=== PATIENT | female | born 1995 | race Caucasian/White ===

== ENCOUNTER 2016-07-15 18:19 | Emergency (ER) | payer SELFPAY ==
[~2016-07-15] VITALS: Ht 165.1 cm; Wt 59.0 kg
[~2016-07-15 18:19] MED LIST: LORTA5 PO; ZOFR8TAB PO
[2016-07-15 18:22] VITALS: BP 148/89; PULSE 65; RESP 16; TEMP 98.1; O2SAT 94
--- NOTE | 2016-07-16 10:52 | EKG ---
Date Performed: 07/15/2016 Time Performed: 18:56:06 PTAGE: 21 years EKG: SINUS BRADYCARDIA WITH SINUS ARRHYTHMIA BORDERLINE ECG PREVIOUS TRACING : 03/10/2016 18.16 Compared to prior tracing no significant change DOCTOR: Phong Love Interpretating Date/Time 07/16/2016 10:50:20
== END 2016-07-15 21:03 | disposition left against medical advice (07) ==
LOC: NED 18:19
DX: R11.10 Vomiting, unspecified (principal); R00.1 Bradycardia, unspecified
CPT/HCPCS: 93005; 99281

== ENCOUNTER 2017-07-19 02:39 | Emergency (ER) | payer SELFPAY ==
[2017-07-19 03:03] VITALS: BP 124/81; PULSE 104; RESP 18; TEMP 97.8; O2SAT 98
[2017-07-19] MEDS ORDERED: SODIUM CHLOR 0.9% 1000 ML INJ 1,000 ML IV ONE (03:32)
[2017-07-19] MEDS ORDERED: KETOROLAC TROMETHAMINE 30 MG/ML (IVP) VIAL IV PUSH ONE (03:45)
[2017-07-19 04:09] LABS: AUTOMATED NEUTROPHIL # 4.7 TH/MM3 (1.8-7.7); BASOPHIL % 0.5 % (0.0-2.0); EOSINOPHIL # 0.2 TH/MM3 (0-0.4); HEMATOCRIT 38.8 % (35.0-46.0); HEMOGLOBIN 13.5 GM/DL (11.6-15.3); LYMPH % 27.6 % (9.0-44.0); MEAN CELL VOLUME 92.2 FL (80.0-100.0); MEAN CORPUSCULAR HEMOGLOBIN 32.2 PG (27.0-34.0); MEAN CORPUSCULAR HGB CONC 34.9 % (32.0-36.0); MEAN PLATELET VOLUME 8.8 FL (7.0-11.0); MONOCYTE # 0.3 TH/MM3 (0-0.9); NEUT % 64.9 % (16.0-70.0); PLATELET COUNT 315 TH/MM3 (150-450); RED BLOOD COUNT 4.21 MIL/MM3 (4.00-5.30); RED CELL DISTRIBUTION WIDTH 12.6 % (11.6-17.2); WHITE BLOOD COUNT 7.2 TH/MM3 (4.0-11.0)
[2017-07-19 04:16] LABS: BILIRUBIN, URINE NEG (NEG); BLOOD, URINE TRACE (NEG); GLUCOSE,URINE NEG (NEG); KETONE, URINE NEG (NEG); MUCUS URINE FEW /lpf (OCC); NITRITE,URINE NEG (NEG); PH, URINE 6.5 (5.0-8.5); SQUAMOUS EPITHELIAL CELL URINE 1 /hpf (0-5); URINE COLOR LIGHT-YELLOW (YELLW/STRAW); URINE LEUKOCYTE ESTERASE NEG (NEG)
[2017-07-19 04:30] LABS: BICARBONATE 27.3 MEQ/L (21.0-32.0); CALCIUM 8.8 MG/DL (8.5-10.1); CREATININE 0.37 MG/DL (0.50-1.00)
--- NOTE | 2017-07-19 05:07 | PD ---
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 Patient states she did have an ultrasound. Patient was given prescriptions for cannot afford them. Patient's had no fever or chills. Patient denies heavy bleeding or clot passage. 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 After inserting the tampon she felt discomfort so called the EMS to transport her to the emergency department. Patient's had no purulent vaginal discharge. While en route to the hospitalist requested that EMS remove the tampon they've informed they could not do that so she drank that the tampon on her own and then complained of increasing pelvic pain patient became reportedly hysterical and uncontrollable so she received Ativan 2 mg IM for mild chemical sedation. PFSH Past Medical History Narrative Medical Depression anxiety kidney stones 2 para 1 AB 1 cholecystectomy occasional alcohol use;nursing notes reviewed Depression: Yes Diminished Hearing: No Kidney Stones: Yes ?: Not Past Surgical History Cholecystectomy: Yes Social History Alcohol Use: No Tobacco Use: No Substance Use: Yes (MARIJUANA ) Allergies-Medications (Allergen,Severity, Reaction): Coded Allergies: No Known Allergies (Unverified Allergy, Unknown, 07/19/17) Reported Meds & Prescriptions Reported Meds & Active Scripts Active Zofran Tab (Ondansetron HCl) 8 Mg Tab 8 Mg PO BID [place] 5-325 mg (Hydrocodone-Acetaminophen 5-325 mg) 1 Tab 1-2 Tab PO Q4H PRN Review of Systems Except as stated in HPI: all other systems reviewed are Neg General / Constitutional: No: Fever, Chills HENT: No: Congestion Cardiovascular: No: Chest Pain or Discomfort Respiratory: No: Shortness of Breath Gastrointestinal: No: Nausea, Vomiting, Abdominal Pain Genitourinary: Positive: Pelvic Pain, Vaginal Bleeding, No: Dysuria, Discharge Skin: No Rash Neurologic: No: Weakness Psychiatric: No: Anxiety Hematologic/Lymphatic: No: Lymph Node Enlargement Physical Exam Narrative GENERAL: Well developed well-nourished female in no acute distress no respiratory distress SKIN: Warm and dry. HEAD: Normocephalic. EYES: No scleral icterus. No injection or drainage. NECK: Supple, trachea midline. No JVD or lymphadenopathy. CARDIOVASCULAR: Regular rate and rhythm without murmurs, gallops, or rubs. RESPIRATORY: Breath sounds equal bilaterally. No accessory muscle use. GASTROINTESTINAL: Abdomen soft, non-tender, nondistended. Pelvic exam: External exam no redness induration or lesions no blood; speculum exam scant pink tinged mucus no blood no clots no tissue cervical os is closed; bimanual exam no cervical motion tenderness or adnexal mass or tenderness. MUSCULOSKELETAL: No cyanosis, or edema. BACK: Nontender without obvious deformity. No CVA tenderness. Data Data Last Documented VS Vital Signs Date Time Temp Pulse Resp B/P (MAP) Pulse Ox O2 Delivery O2 Flow Rate FiO2 07/19/17 03:03 97.8 104 18 124/81 (95) 98 Orders Orders Beta Hcg (Quant/Titer) (07/19/17 03:32) Complete Blood Count With Diff (07/19/17 03:32) Basic Metabolic Panel (Bmp) (07/19/17 03:32) Gc And Chlamydia Pcr (07/19/17 03:32) Complete Rh (07/19/17 03:32) Wet Prep Profile (07/19/17 03:32) Urinalysis - C+S If Indicated (07/19/17 03:32) Iv Access Insert/Monitor (07/19/17 03:32) Sodium Chlor 0.9% 1000 Ml Inj (Ns 1000 M (07/19/17 03:32) Ketorolac Inj (Toradol Inj) (07/19/17 03:45) Mandatory Outpatient Referral (07/19/17 05:07) Labs Laboratory Tests Test 07/19/17 03:41 White Blood Count 7.2 TH/MM3 Red Blood Count 4.21 MIL/MM3 Hemoglobin 13.5 GM/DL Hematocrit 38.8 % Mean Corpuscular Volume 92.2 FL Mean Corpuscular Hemoglobin 32.2 PG Mean Corpuscular Hemoglobin Concent 34.9 % Red Cell Distribution Width 12.6 % Platelet Count 315 TH/MM3 Mean Platelet Volume 8.8 FL Neutrophils (%) (Auto) 64.9 % Lymphocytes (%) (Auto) 27.6 % Monocytes (%) (Auto) 4.0 % Eosinophils (%) (Auto) 3.0 % Basophils (%) (Auto) 0.5 % Neutrophils # (Auto) 4.7 TH/MM3 Lymphocytes # (Auto) 2.0 TH/MM3 Monocytes # (Auto) 0.3 TH/MM3 Eosinophils # (Auto) 0.2 TH/MM3 Basophils # (Auto) 0.0 TH/MM3 CBC Comment DIFF FINAL Differential Comment Urine Color LIGHT-YELLOW Urine Turbidity CLEAR Urine pH 6.5 Urine Specific Lynn 1.005 Urine Protein NEG mg/dL Urine Glucose (UA) NEG mg/dL Urine Ketones NEG mg/dL Urine Occult Blood TRACE Urine Nitrite NEG Urine Bilirubin NEG Urine Urobilinogen LESS THAN 2.0 MG/DL Urine Leukocyte Esterase NEG Urine RBC 1 /hpf Urine WBC 1 /hpf Urine Squamous Epithelial Cells 1 /hpf Urine Mucus FEW /lpf Microscopic Urinalysis Comment CULT NOT INDICATED Clue Cells (Wet Prep) NONE SEEN Vaginal Trichomonas (Wet Prep) NONE SEEN Vaginal Yeast (Wet Prep) NONE SEEN Blood Urea Nitrogen 5 MG/DL Creatinine 0.37 MG/DL Random Glucose 105 MG/DL Calcium Level 8.8 MG/DL Sodium Level 146 MEQ/L Potassium Level 3.7 MEQ/L Chloride Level 112 MEQ/L Carbon Dioxide Level 27.3 MEQ/L Anion Gap 7 MEQ/L Estimat Glomerular Filtration Rate 215 ML/MIN Human Chorionic Gonadotropin, Quant 134 MIU/ML Chlamydia trachomatis DNA (PCR) NOT DETECTED Neisseria gonorrhoeae DNA (PCR) NOT DETECTED MDM Medical Decision Making Medical Screen Exam Complete: Yes Emergency Medical Condition: Yes Medical Record Reviewed: Yes Interpretation(s) CBC & BMP Diagram 07/19/17 03:41 Calcium Level 8.8 Vital Signs Date Time Temp Pulse Resp B/P (MAP) Pulse Ox O2 Delivery O2 Flow Rate FiO2 07/19/17 03:03 97.8 104 18 124/81 (95) 98 hc ua: wnl wet prep: negative (O+) Differential Diagnosis Pelvic pain, post spontaneous vaginal bleeding, endometritis, septic , retained products of conception Narrative Course IV access obtained specimens collected and sent for resulting patient administered Zofran and normal saline Patient given one-time dose of Toradol 30 mg IV Pelvic exam shows no cervical motion tenderness no purulent discharge there is scant pink tinged mucus and no blood clots in the cervical os is closed and no evidence of tissue. Medical records requested from hospital to evaluate to see patient actually did have an ultrasound and if there is any concern for retained products. Patient resting comfortably It is 6 AM and patient informed of lab results and given mandatory referral to gynecology as she states she has no primary care provider no calibration engineer no insurance and no money to arrange follow-up. 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 Patient Instructions: General Instructions Med/Other Pt SpecificInfo: Prescription(s) given Scripts Oxycodone-Acetaminophen (Percocet) 5-325 mg Tab 1 TAB PO Q6H Y for PAIN, #4 TAB 0 Refills Prov: Em Caputo MD 07/19/17 Methylergonovine (Methergine) 0.2 Mg Tab 0.2 MG PO QD for Prevents Bleeding for 3 Days, TAB 0 Refills Prov: Em Caputo MD 07/19/17 Naproxen Sodium DS (Anaprox DS) 550 Mg Tab 550 MG PO BID, #15 TAB 0 Refills Prov: Em Caputo MD 07/19/17 Ondansetron Odt (Zofran Odt) 4 Mg Tab 4 MG SL Q6HR Y for Nausea/Vomiting, #10 TAB 0 Refills Prov: Em Caputo MD 07/19/17 Disposition: 01 DISCHARGE HOME Condition: Stable Em Cpauto MD Jul 19, 2017 05:07
[2017-07-19] MEDS ORDERED: SODIUM CHLOR 0.9% 1000 ML INJ 1,000 ML IV SCH (05:09)
[2017-07-19] MEDS ORDERED: DEXT 5%-NACL 0.9% 1000 ML INJ 1,000 ML IV SCH (05:09)
[2017-07-19] MEDS ORDERED: POTASSIUM CHLOR 40 MEQ PREMIX 100 ML IV PRN ×2 (05:15)
[2017-07-19] MEDS ORDERED: INSULIN REGULAR (IV INFUSION) 100 UNITS in SODIUM CHLORIDE 0.9% INJ 99 ML IV PRN (05:15)
[2017-07-19] MEDS ORDERED: SODIUM PHOSPHATE INJ 15 MMOL in SODIUM CHLORIDE 0.9% INJ 100 ML IV PRN (05:15)
[2017-07-19] MEDS ORDERED: POTASSIUM CHLOR 20 MEQ PREMIX 100 ML IV PRN ×6 (05:15)
[2017-07-19] MEDS ORDERED: SODIUM BICARBONATE 8.4% SOLN 50 MEQ/50 ML VIAL IV PUSH PRN ×2 (05:15)
[2017-07-19 06:04] VITALS: BP 110/60; PULSE 97; RESP 16; TEMP 98; O2SAT 98
[2017-07-19] MEDS ORDERED: METH-703 PO (06:04)
[2017-07-19] MEDS ORDERED: NAPR5TAB5 PO (06:04)
[2017-07-19] MEDS ORDERED: ZOFR4TAB3 SL (06:04)
[2017-07-19] MEDS ORDERED: PERC5TAB12 PO (06:04)
[2017-07-19] MEDS ORDERED: ONDANSETRON HCL 4 MG/2 ML VIAL IV PUSH ONE (06:15)
== END 2017-07-19 06:43 | disposition home or self-care (01) ==
LOC: NEPC 02:39
DX: N93.9 Abnormal uterine and vaginal bleeding, unspecified (principal); T19.2XXA Foreign body in vulva and vagina, initial encounter
CPT/HCPCS: 80048; 81001; 84702; 85025; 86901; 87210; 87491; 87591; 96361; 96374; 96375; 99284; J1885; J2405; J7030

== ENCOUNTER 2018-03-03 15:33 | Observation (INO) ==
[2018-03-03] MEDS ORDERED: Famotidine PF Inj 20 MG/2 ML Vial IV.PUSH ONE (16:24)
[2018-03-03] MEDS ORDERED: Sod Chloride 0.9% Inj 1,000 ML IV.SIG ONE (16:24)
--- NOTE | 2018-03-03 16:36 | ED ---
HPI General Chief Complaint: Chest Pain Stated Complaint: Abd/chest pain Time Seen by Provider: 03/03/18 15:49 Source: patient Mode of arrival: ambulatory Limitations: no limitations History of Present Illness HPI narrative: The patient is a 23-year-old female who presents to the emergency department first of sternal burning chest pain that radiates from the neck down to the epigastrium. The patient's pain has been intermittent, worse with eating, and print present for 1 week. The patient was seen at a hospital in [place] where she had an IV placed, was administered IV fluids, was discharged. The patient states she removed in with her mother who lives in the local area 2 days ago. The patient states she does not have insurance and does not have access to care. The patient denies any known history of esophagitis, HIV, GERD, anorexia, or bulimia. The patient states her weight 1 month ago was 137, estimates a 20 pound weight loss over the last month. Patient denies any shortness of breath, the chest pain is substernal, worse with eating. She does have a history of previous cholecystectomy. MD complaint: abdominal pain Pain Consistency: intermittent Location: epigastric Severity: severe Severity scale (1-10): 8 Quality: aching Radiation: chest Relieving factors: nothing Exacerbating factors: eating Associated symptoms: nausea and vomiting Treatments prior to arrival: other Related Data Home Medications Medication Instructions Recorded Confirmed No Known Home Medications 03/03/18 03/03/18 Allergies Allergy/AdvReac Type Severity Reaction Status Date / Time No Known Allergies Allergy Unverified 03/03/18 16:48 Review of Systems ROS: all other systems reviewed are negative [facility] Medical History Medical History Patient denies medical problems (Acute) Surgical History Surgical History History of cholecystectomy (Acute) Social History Social History Substance History: No History of Abuse Smoking Status: Never smoker How Often Do You Have a Drink Containing Alcohol: Never Recent Travel in [facility] [[email or web address] within the Last 8 Weeks: No Recent Out of Country Travel within the Last 8 Weeks: No Immunization History Tetanus Immunization: Unsure Exam Narrative Exam Narrative: GENERAL: Awake, alert, pleasant 23-year-old female appears her stated age and is in no acute respiratory distress. Thin-looking appearance. SKIN: Focused skin assessment warm/dry. HEAD: Atraumatic. Normocephalic. EYES: Pupils equal and round. No scleral icterus. No injection or drainage. ENT: No nasal bleeding or discharge. Mucous membranes pink and moist. No erythema or exudate noted. NECK: Trachea midline. No JVD. CARDIOVASCULAR: Regular, tachycardic with a heart rate of 115. RESPIRATORY: No accessory muscle use. Clear to auscultation. Breath sounds equal bilaterally. GASTROINTESTINAL: Abdomen soft, mild epigastric tenderness. No guarding or rigidity. MUSCULOSKELETAL: No obvious deformities. No clubbing. No cyanosis. No edema. NEUROLOGICAL: Awake and alert. No obvious cranial nerve deficits. Motor grossly within normal limits. Normal speech. PSYCHIATRIC: Appropriate mood and affect; insight and judgment normal. Course Initial Documented Vital Signs Temperature 97.9 F 03/03/18 15:39 Pulse Rate 127 H 03/03/18 15:39 Respiratory Rate 16 03/03/18 15:39 Blood Pressure 121/63 03/03/18 15:39 Pulse Oximetry 97 03/03/18 15:39 Last Documented Vital Signs Temperature 97.9 F 03/03/18 15:39 Pulse Rate 84 03/03/18 18:22 Respiratory Rate 17 03/03/18 18:22 Blood Pressure 120/66 03/03/18 18:22 Pulse Oximetry 99 03/03/18 18:22 Medical Decision Making MDM Narrative Medical decision making narrative: IV was established, labs are drawn and sent, and the patient was placed on cardiac telemetry monitoring and continuous pulse oximetry monitoring. The patient was taken to the scale for an official weight , she states her weight 1 month ago was 137. Patient was administered Pepcid, Zofran, and 1 L of IV fluids. The patient's laboratory evaluation reveals mild hypokalemia 3.1. Patient appears hemoconcentrated with a hemoglobin of 15.7 white count of 12.5. The patient has significant weight loss, 137 pounds 1 month ago down to 113. The patient has pain with swallowing, may have esophagitis versus esophageal motility disorder versus esophageal spasm versus GERD/gastritis. The patient most likely will require endoscopy to evaluate for possibility of esophagitis versus barium swallow. I discussed the patient with the on-call medical service who agrees with 23 hour observation. The patient is comfortable with this plan of care and disposition. Medical Screen Exam Complete: Yes Emergency Medical Condition: Yes Differential Diagnosis Differential Diagnosis: Differential diagnosis includes esophagitis, GERD, achalasia, esophageal motility disorder, pancreatitis, gastritis, peptic ulcer disease, anorexia, bulimia, esophageal spasm. Lab Data Result diagrams: 03/03/18 16:35 03/03/18 16:35 POC Results POC Urine Results Negative Lab Results 03/03/18 03/03/18 03/03/18 Range/Units 16:35 16:35 16:35 WBC 12.5 H (4.0-11.0) th/mm3 RBC 5.24 (4.00-5.30) mil/mm3 Hgb 15.7 H (11.6-15.3) gm/dL Hct 47.3 H (35.0-46.0) % MCV 90.4 (80.0-100.0) fL MCH 30.1 (27.0-34.0) pg MCHC 33.3 (32.0-36.0) % RDW 14.6 (11.6-17.2) % Plt Count 270 (150-450) th/mm3 MPV 9.7 (7.0-11.0) fL Neut % (Auto) 69.0 (16.0-70.0) % Lymph % (Auto) 22.6 (9.0-44.0) % [place] % (Auto) 6.3 (0.0-8.0) % Eos % (Auto) 1.4 (0.0-4.0) % Baso % (Auto) 0.7 (0.0-2.0) % Neut # (Auto) 8.6 H (1.8-7.7) th/mm3 Lymph # (Auto) 2.8 (1.0-4.8) th/mm3 [place] # (Auto) 0.8 (0.0-0.9) th/mm3 Eos # (Auto) 0.2 (0.0-0.4) th/mm3 Baso # (Auto) 0.1 (0.0-0.2) th/mm3 WBC Differential . Differential Comment Auto diff final Sodium 137 (136-145) meq/L Potassium 3.1 L (3.5-5.1) meq/L Chloride 99 (98-107) meq/L Carbon Dioxide 27.5 (21.0-32.0) meq/L Anion Gap 11 (5-15) meq/L BUN 8 (7-18) mg/dL Creatinine 0.64 (0.50-1.00) mg/dL Estimated GFR Greater than 89 (>89) mL/min Random Glucose 85 (74-106) mg/dL Lactic Acid 0.8 (0.4-2.0) mmol/L Calcium 8.6 (8.5-10.1) mg/dL Total Bilirubin 0.8 (0.2-1.0) mg/dL AST 9 L (15-37) U/L ALT 20 (10-53) U/L Alkaline Phosphatase 82 (45-117) U/L Total Protein 7.3 (6.4-8.2) g/dL Albumin 4.1 (3.4-5.0) g/dL Lipase 143 (73-393) U/L Imaging Data Radiologist's impression: Chest X-Ray 03/03/18 16:24 CONCLUSION: No acute intrathoracic disease. ECG Data EKG Prior to Arrival: No Attestation: I personally reviewed and interpreted this ECG as follows: Interpretation: EKG reveals sinus rhythm with sinus arrhythmia. Heart rate in the 80. Discharge Plan Discharge Disposition Patient Disposition: 30 Still Patient Discharge Condition Condition: Stable Discharge Details Diagnosis: Odynophagia, Unintended weight loss Physicians Team ED Provider: Wiley Herbert Primary Care Provider: Primary Care Lakshmi Dinero Attending Provider: Joel Dwyer Discharge Interventions Interventions: Vital Signs Last Done: 03/03/18 18:22 Status ED Status: Admitted Observation Patient
--- NOTE | 2018-03-03 16:50 | XR ---
EXAM DATE: 03/03/2018 4:40 PM EDT AGE/SEX: 23 years / Female INDICATIONS: Chest pain, palpitations, and vomiting. CLINICAL DATA: This is the patient's initial encounter. Patient reports that signs and symptoms have been present for 1 week and indicates a pain score of 4/10. MEDICAL/SURGICAL HISTORY: None. None. COMPARISON: No prior exams available for comparison. FINDINGS: A single AP view of the chest demonstrates the lungs to be symmetrically aerated without evidence of mass, infiltrate or effusion. The cardiomediastinal contours are unremarkable. Osseous structures a re intact. CONCLUSION: No acute intrathoracic disease. Electronically signed by: Leo Hartman MD 03/03/2018 4:49 PM EDT
[2018-03-03 17:01] LABS: Baso # (Auto) 0.1 th/mm3 (0.0-0.2); Baso % (Auto) 0.7 % (0.0-2.0); Eos # (Auto) 0.2 th/mm3 (0.0-0.4); Eos % (Auto) 1.4 % (0.0-4.0); Hematocrit 47.3 % (35.0-46.0); Hemoglobin 15.7 gm/dL (11.6-15.3); Lymph # (Auto) 2.8 th/mm3 (1.0-4.8); Lymph % (Auto) 22.6 % (9.0-44.0); Mean Corpuscular HGB Conc 33.3 % (32.0-36.0); Mean Corpuscular Hemoglobin 30.1 pg (27.0-34.0); Mean Corpuscular Volume 90.4 fL (80.0-100.0); Mean Platelet Volume 9.7 fL (7.0-11.0); Mono # (Auto) 0.8 th/mm3 (0.0-0.9); Mono % (Auto) 6.3 % (0.0-8.0); Neut # (Auto) 8.6 th/mm3 (1.8-7.7); Platelet Count 270 th/mm3 (150-450); Red Blood Count 5.24 mil/mm3 (4.00-5.30); Red Cell Distribution Width 14.6 % (11.6-17.2); White Blood Count 12.5 th/mm3 (4.0-11.0)
[2018-03-03 17:15] LABS: Alanine Aminotransferase 20 U/L (10-53); Albumin 4.1 g/dL (3.4-5.0); Anion Gap 11 meq/L (5-15); Aspartate Aminotransferase 9 U/L (15-37); Blood Urea Nitrogen 8 mg/dL (7-18); Calcium 8.6 mg/dL (8.5-10.1); Carbon Dioxide 27.5 meq/L (21.0-32.0); Chloride 99 meq/L (98-107); Glomerular Filtration Rate Greater Than 89 mL/min (>89); Glucose,Random 85 mg/dL (74-106); Lipase 143 U/L (73-393); Potassium 3.1 meq/L (3.5-5.1); Sodium 137 meq/L (136-145)
[2018-03-03 17:17] LABS: Alkaline Phosphatase 82 U/L (45-117); Total Protein 7.3 g/dL (6.4-8.2)
[2018-03-03] MEDS ORDERED: Ketorolac Inj 30 MG/ML (IVP) Vial IV.PUSH ONE (17:34)
[2018-03-03] MEDS ORDERED: Morphine Sulfate Inj 2 MG/ML Vial IV.PUSH ONE ×2 (17:56→19:35)
[2018-03-03] MEDS ORDERED: Sod Chloride 0.9% Inj 1,000 ML IV.SIG SCH (18:00)
[2018-03-03 18:47] LABS: Bacteria,Urine Occasional /hpf; Bilirubin,Urine Negative (Negative); Color,Urine Amber (Yellw/Straw); Glucose,Urine (UA) Negative (Negative); Hyaline Casts,Urine 4 /lpf (0-3); Leukocyte Esterase,Urine Negative (Negative); Mucus,Urine Many /lpf (Occasional); Nitrite,Urine Negative (Negative); Specific Gravity,Urine 1.019 (1.002-1.035); Squamous Epithelial Cell,Urine 29 /hpf (0-5)
[2018-03-03 18:48] LABS: Clarity,Urine Hazy (Clear)
[2018-03-03] MEDS ORDERED: Bisacodyl 10 MG Supp RECTAL PRN (20:09)
[2018-03-03] MEDS: Sod Chloride 0.9% Inj 1,000 ML IV.CONT SCH (21:30)
[2018-03-03] MEDS: Potassium Chlor 20 mEq Premix 20 MEQ/100 ML PIGGYBACK IV.SIG SCH (21:30)
[2018-03-03] MEDS ORDERED: Acetaminophen 325 MG Tablet PO PRN (22:00)
[2018-03-03] MEDS ORDERED: Naloxone Inj 0.4 MG/ML Vial IV.PUSH PRN (22:00)
[2018-03-03 22:51] LABS: Amphetamine Screen,Urine Neg (Neg); Barbiturate Screen,Urine Neg (Neg); Cannabinoid Screen,Urine Pos (Neg); Cocaine Screen,Urine Neg (Neg)
[2018-03-03 22:52] LABS: Opiate Screen,Urine Pos (Neg)
--- NOTE | 2018-03-03 23:51 | P.HPIM ---
History of Present Illness Primary Care Physician: No Primary Care Physician History of Present Illness: 23-year-old female history of cholecystectomy due to cholelithiasis and pericholecystic fluid in 2016 who presents with intermittent nonradiating, burning epigastric pain, nausea with nonbloody vomiting over the past week. She reports a 27 pound weight loss. Patient reports smoking marijuana, says she quit 2 days ago however. Review of Systems All other systems reviewed negative except as stated in HPI [facility] - History History Provided By: Patient - Medical History Medical History: Medical History (Last Reviewed 03/03/18 @ 22:49 by Miladis Lam RN) Miscarriage - Surgical History Surgical History: Surgical History (Last Reviewed 03/03/18 @ 22:49 by Miladis Lam RN) History of cholecystectomy - Family History Family History: Family History (Last Updated 03/03/18 @ 23:47 by Jhonny Yun MD) Father Diabetes Father Liver disease Mother Hypertension - Tobacco History Second Hand Smoke Exposure: No Smoking Status: Never smoker - Alcohol History How Often Do You Have a Drink Containing Alcohol: Never - Substance Use History Substance History: No History of Abuse - Travel History Recent Travel in the [place] Within the Last 8 Weeks: No Recent Travel Out of the Country Within the Last 8 Weeks: No - Immunization History Tetanus Immunization: Unsure Medications and Allergies Active Medications: Active Medications Acetaminophen (Tylenol) 650 mg PO Q6HR PRN PRN Reason: PAIN SCALE 1 TO 2 Al Hydroxide/Mg Hydroxide (Milk Of Magnesia Liq) 30 ml PO Q12H PRN PRN Reason: Mild Constipation Bisacodyl (Dulcolax Supp) 10 mg RECTAL DAILY PRN PRN Reason: SEVERE CONSITIPATION Sodium Chloride (Ns Inj) 1,000 mls @ 0 mls/hr IV.SIG BOLUS ASHER Potassium Chloride (Kcl 20 Meq Premix Inj) 20 meq in 100 mls @ 50 mls/hr IV.SIG Q2H ASHER Stop: 03/04/18 00:59 Last Admin: 03/03/18 21:30 Dose: 50 mls/hr Sodium Chloride (Ns Inj) 1,000 mls @ 100 mls/hr IV.CONT .Q10H ASHER Last Admin: 03/03/18 21:30 Dose: 100 mls/hr Lactulose (Lactulose Liq) 30 ml PO DAILY PRN PRN Reason: SEVERE CONSITIPATION Naloxone HCl (Narcan Inj) 0.4 mg IV.PUSH UNSCH PRN PRN Reason: SEE LABEL COMMENTS Sennosides (Senokot) 17.2 mg PO Q12H PRN PRN Reason: Moderate Constipation Sodium Chloride (Ns Flush) 2 ml IV.FLUSH PRN PRN PRN Reason: FLUSH AFTER USING IV ACCESS Last Admin: 03/03/18 16:54 Dose: 2 ml Tramadol HCl (Ultram) 50 mg PO Q4H PRN PRN Reason: PAIN SCALE 3 TO 5 Tramadol HCl (Ultram) 100 mg PO Q4H PRN PRN Reason: PAIN SCALE 6 TO 10 Last Admin: 03/03/18 22:28 Dose: 100 mg Allergies Allergy/AdvReac Type Severity Reaction Status Date / Time No Known Allergies Allergy Unverified 03/03/18 16:48 Home Medications Medication Instructions Recorded Confirmed Type No Known Home Medications 03/03/18 03/03/18 History Exam Vital signs: Vital Signs 03/03/18 15:39 03/03/18 15:48 03/03/18 18:22 Temperature 97.9 F Pulse Rate 127 H 104 H 84 Respiratory Rate 16 18 17 Blood Pressure 121/63 126/67 120/66 Pulse Oximetry 97 96 99 03/03/18 21:22 Temperature 98.6 F Pulse Rate 67 Respiratory Rate 16 Blood Pressure 100/55 L Pulse Oximetry 97 Intake & Output 03/03/18 03/03/18 03/04/18 06:59 18:59 06:59 Intake Total 1000 / 1000 Balance 1000 / 1000 Weight 51.6 kg Intake: IV 1000 / 1000 NS Inj 1,000 ML @ Wide Open IV. 1000 / 1000 SIG BOLUS ONE Rx#:[id number] Other: Date of Last Bowel Movement 03/02/18 Narrative: GENERAL: Patient sitting up in bed. Appears comfortable. Alert and oriented 4. Patient examined with nurse present. SKIN: Warm and dry. HEAD: Atraumatic. Normocephalic. EYES: Pupils equal and round. No scleral icterus. No injection or drainage. ENT: No nasal bleeding or discharge. Mucous membranes pink and moist. NECK: Trachea midline. No JVD. CARDIOVASCULAR: Regular rate and rhythm. RESPIRATORY: No accessory muscle use. Clear to auscultation. Breath sounds equal bilaterally. GASTROINTESTINAL: Abdomen soft, non-tender, nondistended. Hepatic and splenic margins not palpable. Positive bowel sounds. MUSCULOSKELETAL: Extremities without clubbing, cyanosis, or edema. No obvious deformities. NEUROLOGICAL: Awake and alert. No obvious cranial nerve deficits. Motor grossly within normal limits. Five out of 5 muscle strength in the arms and legs. Normal speech. PSYCHIATRIC: Appropriate mood and affect; insight and judgment normal. Results - Labs CBC & Chem 7: 03/03/18 16:35 03/03/18 16:35 Labs: Short CBC 03/03/18 Range/Units 16:35 WBC 12.5 H (4.0-11.0) th/mm3 Hgb 15.7 H (11.6-15.3) gm/dL Hct 47.3 H (35.0-46.0) % Plt Count 270 (150-450) th/mm3 BMP 03/03/18 16:35 Sodium 137 Potassium 3.1 L Chloride 99 Carbon Dioxide 27.5 BUN 8 Creatinine 0.64 Calcium 8.6 Liver Function 03/03/18 Range/Units 16:35 Total Bilirubin 0.8 (0.2-1.0) mg/dL AST 9 L (15-37) U/L ALT 20 (10-53) U/L Alkaline Phosphatase 82 (45-117) U/L Albumin 4.1 (3.4-5.0) g/dL Urine 03/03/18 Range/Units 18:21 Urine Color Renetta (Yellw/Straw) Urine Clarity Hazy H (Clear) Urine pH 6.0 (5.0-8.5) Ur Specific [place] 1.019 (1.002-1.035) Urine Protein 30 H (Neg-Trace) mg/dL Urine Glucose (UA) Negative (Negative) mg/dL - Imaging Impressions Chest X-Ray 03/03/18 16:24 CONCLUSION: No acute intrathoracic disease. Caprini VTE Risk Assessment Caprini VTE Risk Assessment: No/Low Risk (score <= 1) Caprini Risk Assessment Model: Point Value = 1 Point Value = 2 Point Value = 3 Point Value = 5 Age 41-60 Minor surgery BMI > 25 kg/m2 Swollen legs Varicose veins or History of unexplained or recurrent spontaneous Oral contraceptives or hormone replacement Sepsis (< 1 month) Serious lung disease, including pneumonia (< 1 month) Abnormal pulmonary function Acute myocardial infarction Congestive heart failure (< 1 month) History of inflammatory bowel disease Medical patient at bed rest Age 61-74 Arthroscopic surgery Major open surgery (> 45 min) Laparoscopic surgery (> 45 min) Malignancy Confined to bed (> 72 hours) Immobilizing plaster cast Central venous access Age >= 75 History of VTE Family history of VTE Factor V Leiden Prothrombin [id number] Lupus anticoagulant Anticardiolipin antibodies Elevated serum homocysteine Heparin-induced thrombocytopenia Other congenital or acquired thrombophilia Stroke (< 1 month) Elective arthroplasty Hip, pelvis, or leg fracture Acute spinal cord injury (< 1 month) Prophylaxis Regimen: Total Risk Factor Score Risk Level Prophylaxis Regimen 0-1 Low Early ambulation 2 Moderate Order ONE of the following: *Sequential Compression Device (SCD) *Heparin 5000 units SQ BID 3-4 Higher Order ONE of the following medications: *Heparin 5000 units SQ TID *Enoxaparin/Lovenox 40 mg SQ daily (WT < 150 kg, CrCl > 30 mL/min) *Enoxaparin/Lovenox 30 mg SQ daily (WT < 150 kg, CrCl > 10-29 mL/min) *Enoxaparin/Lovenox 30 mg SQ BID (WT < 150 kg, CrCl > 30 mL/min) AND/OR *Sequential Compression Device (SCD) 5 or more Highest Order ONE of the following medications: *Heparin 5000 units SQ TID (Preferred with Epidurals) *Enoxaparin/Lovenox 40 mg SQ daily (WT < 150 kg, CrCl > 30 mL/min) *Enoxaparin/Lovenox 30 mg SQ daily (WT < 150 kg, CrCl > 10-29 mL/min) *Enoxaparin/Lovenox 30 mg SQ BID (WT < 150 kg, CrCl > 30 mL/min) AND *Sequential Compression Device (SCD) Assessment and Plan - Plan //Epigastric pain //Nausea and vomiting -Chest x-ray unremarkable. -LFTs unremarkable. Improved nausea with antiemetics Continue antiemetics. -Possibility of marijuana hyperemesis syndrome, however patient does not believe this is a case. N.p.o. Consult gastroenterology. //Mild leukocytosis. Leukocytes 12.6 likely secondary to nausea vomiting. No signs of infection. Continue to monitor //Hypokalemia. Likely secondary nausea vomiting. Replace and monitor. Discussed Condition With: Patient, nurse, Dr. Dwyer H&P: Quality - VTE Deep Vein Thrombosis/Pulmonary Embolism Present on Admission: No
[2018-03-04] MEDS: Potassium Chlor 20 mEq Premix 20 MEQ/100 ML PIGGYBACK IV.SIG SCH (00:27)
[2018-03-04] MEDS: Melatonin 5 MG Tablet PO PRN ×2 (01:14→21:02)
[2018-03-04] MEDS: Pantoprazole Inj 40 MG Vial IV.PUSH SCH ×3 (01:53→20:33)
[2018-03-04] MEDS: Sod Chloride 0.9% Inj 1,000 ML IV.CONT SCH ×3 (06:36→20:47)
[2018-03-04 07:15] LABS: Baso # (Auto) 0.1 th/mm3 (0.0-0.2); Baso % (Auto) 0.9 % (0.0-2.0); Eos # (Auto) 0.3 th/mm3 (0.0-0.4); Eos % (Auto) 2.8 % (0.0-4.0); Hematocrit 39.2 % (35.0-46.0); Hemoglobin 13.1 gm/dL (11.6-15.3); Lymph # (Auto) 3.5 th/mm3 (1.0-4.8); Lymph % (Auto) 37.8 % (9.0-44.0); Mean Corpuscular HGB Conc 33.4 % (32.0-36.0); Mean Corpuscular Hemoglobin 30.6 pg (27.0-34.0); Mean Corpuscular Volume 91.5 fL (80.0-100.0); Mean Platelet Volume 9.1 fL (7.0-11.0); Mono # (Auto) 0.6 th/mm3 (0.0-0.9); Neut # (Auto) 4.9 th/mm3 (1.8-7.7); Neut % (Auto) 52.5 % (16.0-70.0); Platelet Count 186 th/mm3 (150-450); Red Blood Count 4.28 mil/mm3 (4.00-5.30); Red Cell Distribution Width 14.2 % (11.6-17.2); White Blood Count 9.4 th/mm3 (4.0-11.0)
[2018-03-04 08:15] LABS: Alanine Aminotransferase 16 U/L (10-53); Albumin 3.2 g/dL (3.4-5.0); Alkaline Phosphatase 61 U/L (45-117); Anion Gap 9 meq/L (5-15); Aspartate Aminotransferase 7 U/L (15-37); Blood Urea Nitrogen 8 mg/dL (7-18); Calcium 7.9 mg/dL (8.5-10.1); Carbon Dioxide 27.5 meq/L (21.0-32.0); Chloride 107 meq/L (98-107); Glomerular Filtration Rate Greater Than 89 mL/min (>89); Glucose,Random 68 mg/dL (74-106); Potassium 3.2 meq/L (3.5-5.1); Sodium 143 meq/L (136-145); Total Protein 5.6 g/dL (6.4-8.2)
--- NOTE | 2018-03-04 09:05 | P.CONGI ---
History of Present Illness Consult date: 03/04/18 Consult reason: Epigastric pain Chief complaint: odynophagia, possible esophagitis,significant History of Present Illness: This is a 23 yo F with PMH significant for cholecystectomy who presented to the ER yesterday with complaints of abdominal pain, nausea, vomiting, and weight loss. Pt reports symptoms began 8 days ago, complaining of generalized abdominal pain that is worse in her epigastric area, constant, described as dull and aching, burning sensation when she eats. Also complaining of nausea with emesis, multiple episodes, denies hematemesis, has noticed some black chunks. Denies dysphagia, reports some odynophagia from vomiting. Pt also reports a 27 pound weight loss over the past 8 days, has not been able to keep anything down. Has not had a BM in a few days because she has not been eating. Subjective fevers, but has not checked her temperature. Denies previous GI history. Has never had EGD or colonoscopy. Reports social ETOH use, thinks last drink was about a month ago. Denies frequent NSAID use, did have some Ibuprofen yesterday. Also admits to marijuana use, last use was 2 days ago. Pt has been trying Melatonin, Nyquil, and Benadryl for symptoms to help her sleep. <eJs Toussaint - Last Filed: 03/04/18 08:52> Review of Systems Constitutional: Reports chills, Reports fatigue, Reports fever(s), Reports weight loss Gastrointestinal: Reports abdominal pain, Reports nausea, Reports vomiting, Denies change in bowel habits Comments: Denies dysphagia, reports odynophagia <Jes Toussaint - Last Filed: 03/04/18 08:52> [facility] - History History Provided By: Patient - Medical History Medical History: Medical History (Last Reviewed 03/03/18 @ 22:49 by Miladis Lam RN) Miscarriage - Surgical History Surgical History: Surgical History (Last Reviewed 03/03/18 @ 22:49 by Miladis aLm RN) History of cholecystectomy - Family History Family History: Family History (Last Updated 03/03/18 @ 23:47 by Jhonny Yun MD) Father Diabetes Father Liver disease Mother Hypertension - Tobacco History Second Hand Smoke Exposure: No Smoking Status: Never smoker - Alcohol History How Often Do You Have a Drink Containing Alcohol: Never - Substance Use History Substance History: No History of Abuse - Travel History Recent Travel in the [place] Within the Last 8 Weeks: No Recent Travel Out of the Country Within the Last 8 Weeks: No - Immunization History Tetanus Immunization: Unsure <Jes Toussaint - Last Filed: 03/04/18 08:52> - Medical History Medical History: Medical History (Last Reviewed 03/03/18 @ 22:49 by Miladis Lam, RN) Miscarriage - Surgical History Surgical History: Surgical History (Last Reviewed 03/03/18 @ 22:49 by Miladis Lam RN) History of cholecystectomy - Family History Family History: Family History (Last Updated 03/03/18 @ 23:47 by Jhonny Yun MD) Father Diabetes Father Liver disease Mother Hypertension <Renuka Charles - Last Filed: 03/04/18 15:29> Medications and Allergies Active Medications: Active Medications Acetaminophen (Tylenol) 650 mg PO Q6HR PRN PRN Reason: PAIN SCALE 1 TO 2 Al Hydroxide/Mg Hydroxide (Milk Of Magnesia Liq) 30 ml PO Q12H PRN PRN Reason: Mild Constipation Bisacodyl (Dulcolax Supp) 10 mg RECTAL DAILY PRN PRN Reason: SEVERE CONSITIPATION Sodium Chloride (Ns Inj) 1,000 mls @ 0 mls/hr IV.SIG BOLUS ASHER Sodium Chloride (Ns Inj) 1,000 mls @ 100 mls/hr IV.CONT .Q10H ASHER Last Admin: 03/04/18 06:36 Dose: 100 mls/hr Lactulose (Lactulose Liq) 30 ml PO DAILY PRN PRN Reason: SEVERE CONSITIPATION Melatonin (Melatonin) 5 mg PO HS PRN PRN Reason: INSOMNIA Last Admin: 03/04/18 01:14 Dose: 5 mg Naloxone HCl (Narcan Inj) 0.4 mg IV.PUSH UNSCH PRN PRN Reason: SEE LABEL COMMENTS Pantoprazole Sodium (Protonix Inj) 40 mg IV.PUSH Q12HR ASHER Last Admin: 03/04/18 01:53 Dose: 40 mg Sennosides (Senokot) 17.2 mg PO Q12H PRN PRN Reason: Moderate Constipation Sodium Chloride (Ns Flush) 2 ml IV.FLUSH PRN PRN PRN Reason: FLUSH AFTER USING IV ACCESS Last Admin: 03/03/18 16:54 Dose: 2 ml Tramadol HCl (Ultram) 50 mg PO Q4H PRN PRN Reason: PAIN SCALE 3 TO 5 Tramadol HCl (Ultram) 100 mg PO Q4H PRN PRN Reason: PAIN SCALE 6 TO 10 Last Admin: 03/03/18 22:28 Dose: 100 mg <Jes Toussaint - Last Filed: 03/04/18 08:52> Active Medications: Active Medications Acetaminophen (Tylenol) 650 mg PO Q6HR PRN PRN Reason: PAIN SCALE 1 TO 2 Al Hydroxide/Mg Hydroxide (Milk Of Magnesia Liq) 30 ml PO Q12H PRN PRN Reason: Mild Constipation Bisacodyl (Dulcolax Supp) 10 mg RECTAL DAILY PRN PRN Reason: SEVERE CONSITIPATION Chlorhexidine Gluconate (Chlorhexidine 2% Cloth) 3 pack [employer]ICAL [employer]GER [facility] Stop: 03/07/18 11:26 Sodium Chloride (Ns Inj) 1,000 mls @ 0 mls/hr IV.SIG BOLUS [facility] Sodium Chloride (Ns Inj) 1,000 mls @ 100 mls/hr IV.CONT .Q10H [facility] Last Admin: 03/04/18 06:36 Dose: 100 mls/hr Lactated Ringer's (Lr 1000 Ml Inj) 1,000 mls @ 30 mls/hr IV.SIG .Q24H [facility] Stop: 03/05/18 11:29 Last Admin: 03/04/18 10:20 Dose: 30 mls/hr Sodium Chloride (Ns Inj) 500 mls @ 30 mls/hr IV.SIG .Q10H [facility] Lactulose (Lactulose Liq) 30 ml PO DAILY PRN PRN Reason: SEVERE CONSITIPATION Melatonin (Melatonin) 5 mg PO HS PRN PRN Reason: INSOMNIA Last Admin: 03/04/18 01:14 Dose: 5 mg Metoprolol Tartrate (Lopressor) 25 mg PO [employer]OLOGICAL MANAGER [facility] Stop: 03/07/18 11:26 Naloxone HCl (Narcan Inj) 0.4 mg IV.PUSH UNSCH PRN PRN Reason: SEE LABEL COMMENTS Pantoprazole Sodium (Protonix Inj) 40 mg IV.PUSH Q12HR [facility] Last Admin: 03/04/18 11:47 Dose: Not Given Sennosides (Senokot) 17.2 mg PO Q12H PRN PRN Reason: Moderate Constipation Sodium Chloride (Ns Flush) 2 ml IV.FLUSH PRN PRN PRN Reason: FLUSH AFTER USING IV ACCESS Last Admin: 03/04/18 10:58 Dose: 2 ml Tramadol HCl (Ultram) 50 mg PO Q4H PRN PRN Reason: PAIN SCALE 3 TO 5 Tramadol HCl (Ultram) 100 mg PO Q4H PRN PRN Reason: PAIN SCALE 6 TO 10 Last Admin: 03/04/18 14:37 Dose: 100 mg <Renuka Charles - Last Filed: 03/04/18 15:29> Allergies Allergy/AdvReac Type Severity Reaction Status Date / Time No Known Allergies Allergy Unverified 03/03/18 16:48 Home Medications Medication Instructions Recorded Confirmed Type No Known Home Medications 03/03/18 03/03/18 History Exam Vital signs: Vital Signs 03/03/18 15:39 03/03/18 15:48 03/03/18 18:22 Temperature 97.9 F Pulse Rate 127 H 104 H 84 Respiratory Rate 16 18 17 Blood Pressure 121/63 126/67 120/66 Pulse Oximetry 97 96 99 03/03/18 21:22 03/03/18 23:47 03/04/18 00:26 Temperature 98.6 F 97.7 F Pulse Rate 67 67 Respiratory Rate 16 16 18 Blood Pressure 100/55 L 96/53 L Pulse Oximetry 97 100 03/04/18 03:12 03/04/18 08:00 Temperature 97.7 F 97.4 F L Pulse Rate 61 55 L Respiratory Rate 16 20 Blood Pressure 94/41 L 103/45 L Pulse Oximetry 99 99 Intake & Output 03/03/18 03/04/18 03/04/18 18:59 06:59 18:59 Intake Total 2099 Balance 2099 Weight 51.6 kg Intake: IV 2099 NS Inj 1,000 ML @ 100 mls/hr IV 900 / 900 .CONT .Q10H ASHER Rx#:[id number] KCl 20 mEq Premix Inj 20 meq In 200 / 200 100 ml @ 50 mls/hr IV.SIG Q2H ASHER Rx#:[id number] NS Inj 1,000 ML @ Wide Open IV. 1000 / 1000 SIG BOLUS ONE Rx#:[id number] Other: # Voids 4 Date of Last Bowel Movement 03/02/18 - Constitutional no acute distress - Routine HEENT Exam Head: Present: normocephalic, atraumatic - Routine Respiratory Exam Absent: accessory muscle use - Routine Cardiovascular Exam Present: RRR - Routine Abdominal Exam Present: soft, normoactive bowel sounds, tenderness. Absent: distended - Routine Skin Exam Present: dry, warm - Routine Neurological Exam Present: alert, oriented X3 <Jes Toussaint - Last Filed: 03/04/18 08:52> Vital signs: Vital Signs 03/03/18 15:39 03/03/18 15:48 03/03/18 18:22 Temperature 97.9 F Pulse Rate 127 H 104 H 84 Respiratory Rate 16 18 17 Blood Pressure 121/63 126/67 120/66 Pulse Oximetry 97 96 99 03/03/18 21:22 03/03/18 23:47 03/04/18 00:26 Temperature 98.6 F 97.7 F Pulse Rate 67 67 Respiratory Rate 16 16 18 Blood Pressure 100/55 L 96/53 L Pulse Oximetry 97 100 03/04/18 03:12 03/04/18 08:00 03/04/18 12:55 Temperature 97.7 F 97.4 F L 97.6 F Pulse Rate 61 55 L 92 H Respiratory Rate 16 20 16 Blood Pressure 94/41 L 103/45 L 115/59 L Pulse Oximetry 99 99 100 03/04/18 14:59 Temperature Pulse Rate 56 L Respiratory Rate 20 Blood Pressure 109/67 Pulse Oximetry 100 Intake & Output 03/03/18 03/04/18 03/04/18 18:59 06:59 18:59 Intake Total 2099 Balance 2099 Weight 51.6 kg Intake: IV 2099 NS Inj 1,000 ML @ 100 mls/hr IV 900 / 900 .CONT .Q10H ASHER Rx#:[id number] KCl 20 mEq Premix Inj 20 meq In 200 / 200 100 ml @ 50 mls/hr IV.SIG Q2H ASHER Rx#:[id number] NS Inj 1,000 ML @ Wide Open IV. 1000 / 1000 SIG BOLUS ONE Rx#:[id number] Other: # Voids 4 Date of Last Bowel Movement 03/02/18 <Renuka Charles - Last Filed: 03/04/18 15:29> Results - Labs CBC & Chem 7: 03/04/18 06:33 03/04/18 06:33 Labs: Laboratory Results - last 24 hr 03/03/18 03/03/18 03/03/18 16:35 16:35 16:35 WBC 12.5 H RBC 5.24 Hgb 15.7 H Hct 47.3 H MCV 90.4 MCH 30.1 MCHC 33.3 RDW 14.6 Plt Count 270 MPV 9.7 Neut % (Auto) 69.0 Lymph % (Auto) 22.6 [place] % (Auto) 6.3 Eos % (Auto) 1.4 Baso % (Auto) 0.7 Neut # (Auto) 8.6 H Lymph # (Auto) 2.8 [place] # (Auto) 0.8 Eos # (Auto) 0.2 Baso # (Auto) 0.1 WBC Differential . Differential Comment Auto diff final Sodium 137 Potassium 3.1 L Chloride 99 Carbon Dioxide 27.5 Anion Gap 11 BUN 8 Creatinine 0.64 Estimated GFR Greater than 89 Random Glucose 85 Lactic Acid 0.8 Calcium 8.6 Magnesium Total Bilirubin 0.8 AST 9 L ALT 20 Alkaline Phosphatase 82 Total Protein 7.3 Albumin 4.1 Lipase 143 Urine Color Urine Clarity Urine pH Ur Specific [place] Urine Protein Urine Glucose (UA) Urine Ketones Urine Occult Blood Urine Nitrate Urine Bilirubin Urine Urobilinogen Ur Leukocyte Esterase Urine RBC Urine WBC Ur Squamous Epith Cells Urine Bacteria Hyaline Casts Urine Mucus Micro UA Comment Ur Microscopic Review Urine Culture Comments Urine Opiates Screen Ur Barbiturates Screen Ur Amphetamines Screen U Benzodiazepines Scrn Urine Cocaine Screen U Cannabinoids Screen 03/03/18 03/03/18 03/04/18 18:21 22:00 06:33 WBC 9.4 RBC 4.28 Hgb 13.1 D Hct 39.2 MCV 91.5 MCH 30.6 MCHC 33.4 RDW 14.2 Plt Count 186 D MPV 9.1 Neut % (Auto) 52.5 Lymph % (Auto) 37.8 [place] % (Auto) 6.0 Eos % (Auto) 2.8 Baso % (Auto) 0.9 Neut # (Auto) 4.9 Lymph # (Auto) 3.5 [place] # (Auto) 0.6 Eos # (Auto) 0.3 Baso # (Auto) 0.1 WBC Differential . Differential Comment Auto diff final Sodium Potassium Chloride Carbon Dioxide Anion Gap BUN Creatinine Estimated GFR Random Glucose Lactic Acid Calcium Magnesium Total Bilirubin AST ALT Alkaline Phosphatase Total Protein Albumin Lipase Urine Color Renetta Urine Clarity Hazy H Urine pH 6.0 Ur Specific [place] 1.019 Urine Protein 30 H Urine Glucose (UA) Negative Urine Ketones 20 Urine Occult Blood Moderate H Urine Nitrate Negative Urine Bilirubin Negative Urine Urobilinogen 2.0 H Ur Leukocyte Esterase Negative Urine RBC 11 H Urine WBC 5 Ur Squamous Epith Cells 29 Urine Bacteria Occasional H Hyaline Casts 4 Urine Mucus Many H Micro UA Comment Culture not ind Ur Microscopic Review Not Reportable Urine Culture Comments Culture not ind Urine Opiates Screen Pos H Ur Barbiturates Screen Neg Ur Amphetamines Screen Neg U Benzodiazepines Scrn Neg Urine Cocaine Screen Neg U Cannabinoids Screen Pos H 03/04/18 03/04/18 06:33 06:33 WBC RBC Hgb Hct MCV MCH MCHC RDW Plt Count MPV Neut % (Auto) Lymph % (Auto) [place] % (Auto) Eos % (Auto) Baso % (Auto) Neut # (Auto) Lymph # (Auto) [place] # (Auto) Eos # (Auto) Baso # (Auto) WBC Differential Differential Comment Sodium 143 Potassium 3.2 L Chloride 107 D Carbon Dioxide 27.5 Anion Gap 9 BUN 8 Creatinine 0.52 Estimated GFR Greater than 89 Random Glucose 68 L Lactic Acid Calcium 7.9 L Magnesium 2.1 Total Bilirubin 0.7 AST 7 L ALT 16 Alkaline Phosphatase 61 Total Protein 5.6 L D Albumin 3.2 L D Lipase Urine Color Urine Clarity Urine pH Ur Specific [place] Urine Protein Urine Glucose (UA) Urine Ketones Urine Occult Blood Urine Nitrate Urine Bilirubin Urine Urobilinogen Ur Leukocyte Esterase Urine RBC Urine WBC Ur Squamous Epith Cells Urine Bacteria Hyaline Casts Urine Mucus Micro UA Comment Ur Microscopic Review Urine Culture Comments Urine Opiates Screen Ur Barbiturates Screen Ur Amphetamines Screen U Benzodiazepines Scrn Urine Cocaine Screen U Cannabinoids Screen - Imaging Impressions Chest X-Ray 03/03/18 16:24 CONCLUSION: No acute intrathoracic disease. <Jes Toussaint - Last Filed: 03/04/18 08:52> - Labs CBC & Chem 7: 03/04/18 06:33 03/04/18 06:33 Labs: Laboratory Results - last 24 hr 03/03/18 03/03/18 03/03/18 16:35 16:35 16:35 WBC 12.5 H RBC 5.24 Hgb 15.7 H Hct 47.3 H MCV 90.4 MCH 30.1 MCHC 33.3 RDW 14.6 Plt Count 270 MPV 9.7 Neut % (Auto) 69.0 Lymph % (Auto) 22.6 [place] % (Auto) 6.3 Eos % (Auto) 1.4 Baso % (Auto) 0.7 Neut # (Auto) 8.6 H Lymph # (Auto) 2.8 [place] # (Auto) 0.8 Eos # (Auto) 0.2 Baso # (Auto) 0.1 WBC Differential . Differential Comment Auto diff final Sodium 137 Potassium 3.1 L Chloride 99 Carbon Dioxide 27.5 Anion Gap 11 BUN 8 Creatinine 0.64 Estimated GFR Greater than 89 Random Glucose 85 Lactic Acid 0.8 Calcium 8.6 Magnesium Total Bilirubin 0.8 AST 9 L ALT 20 Alkaline Phosphatase 82 Total Protein 7.3 Albumin 4.1 Lipase 143 Beta HCG, Qual Urine Color Urine Clarity Urine pH Ur Specific [place] Urine Protein Urine Glucose (UA) Urine Ketones Urine Occult Blood Urine Nitrate Urine Bilirubin Urine Urobilinogen Ur Leukocyte Esterase Urine RBC Urine WBC Ur Squamous Epith Cells Urine Bacteria Hyaline Casts Urine Mucus Micro UA Comment Ur Microscopic Review Urine Culture Comments Urine Opiates Screen Ur Barbiturates Screen Ur Amphetamines Screen U Benzodiazepines Scrn Urine Cocaine Screen U Cannabinoids Screen 03/03/18 03/03/18 03/04/18 18:21 22:00 06:33 WBC 9.4 RBC 4.28 Hgb 13.1 D Hct 39.2 MCV 91.5 MCH 30.6 MCHC 33.4 RDW 14.2 Plt Count 186 D MPV 9.1 Neut % (Auto) 52.5 Lymph % (Auto) 37.8 [place] % (Auto) 6.0 Eos % (Auto) 2.8 Baso % (Auto) 0.9 Neut # (Auto) 4.9 Lymph # (Auto) 3.5 [place] # (Auto) 0.6 Eos # (Auto) 0.3 Baso # (Auto) 0.1 WBC Differential . Differential Comment Auto diff final Sodium Potassium Chloride Carbon Dioxide Anion Gap BUN Creatinine Estimated GFR Random Glucose Lactic Acid Calcium Magnesium Total Bilirubin AST ALT Alkaline Phosphatase Total Protein Albumin Lipase Beta HCG, Qual Urine Color Renetta Urine Clarity Hazy H Urine pH 6.0 Ur Specific [place] 1.019 Urine Protein 30 H Urine Glucose (UA) Negative Urine Ketones 20 Urine Occult Blood Moderate H Urine Nitrate Negative Urine Bilirubin Negative Urine Urobilinogen 2.0 H Ur Leukocyte Esterase Negative Urine RBC 11 H Urine WBC 5 Ur Squamous Epith Cells 29 Urine Bacteria Occasional H Hyaline Casts 4 Urine Mucus Many H Micro UA Comment Culture not ind Ur Microscopic Review Not Reportable Urine Culture Comments Culture not ind Urine Opiates Screen Pos H Ur Barbiturates Screen Neg Ur Amphetamines Screen Neg U Benzodiazepines Scrn Neg Urine Cocaine Screen Neg U Cannabinoids Screen Pos H 03/04/18 03/04/18 03/04/18 06:33 06:33 06:33 WBC RBC Hgb Hct MCV MCH MCHC RDW Plt Count MPV Neut % (Auto) Lymph % (Auto) [place] % (Auto) Eos % (Auto) Baso % (Auto) Neut # (Auto) Lymph # (Auto) [place] # (Auto) Eos # (Auto) Baso # (Auto) WBC Differential Differential Comment Sodium 143 Potassium 3.2 L Chloride 107 D Carbon Dioxide 27.5 Anion Gap 9 BUN 8 Creatinine 0.52 Estimated GFR Greater than 89 Random Glucose 68 L Lactic Acid Calcium 7.9 L Magnesium 2.1 Total Bilirubin 0.7 AST 7 L ALT 16 Alkaline Phosphatase 61 Total Protein 5.6 L D Albumin 3.2 L D Lipase Beta HCG, Qual Less than 1.0 Urine Color Urine Clarity Urine pH Ur Specific [place] Urine Protein Urine Glucose (UA) Urine Ketones Urine Occult Blood Urine Nitrate Urine Bilirubin Urine Urobilinogen Ur Leukocyte Esterase Urine RBC Urine WBC Ur Squamous Epith Cells Urine Bacteria Hyaline Casts Urine Mucus Micro UA Comment Ur Microscopic Review Urine Culture Comments Urine Opiates Screen Ur Barbiturates Screen Ur Amphetamines Screen U Benzodiazepines Scrn Urine Cocaine Screen U Cannabinoids Screen - Imaging Impressions Chest X-Ray 03/03/18 16:24 CONCLUSION: No acute intrathoracic disease. Abdomen/Pelvis CT 03/04/18 00:00 CONCLUSION: Bilateral adnexal cysts and minimal free pelvic fluid. <Renuka Charles - Last Filed: 03/04/18 15:29> Assessment and Plan - Plan Assessment: - Abdominal pain, nausea, vomiting Pt reports abdominal pain x 8 days, constant, worse in epigastric area, described as dull and aching, burning after she tries to eat, worse after vomiting. Nausea and vomiting x 8 days, denies hematemesis, reports black chunks in her emesis. Denies history of GI issues. Denies family history of GI issues. Has never had EGD or colonoscopy. Social ETOH, last drink about a month ago. Denies nicotine use. Smokes marijuana, last smoked 2 days ago. Denies frequent NSAID use, did have Ibuprofen yesterday. - Weight loss, states 27 pounds over 8 days, because she has been unable to keep anything down. Plan: EGD today Obtain consent Keep NPO Protonix CT Abdomen and pelvis W IV contrast only- NPO for EGD Further recommendations to follow Pt has been seen and examined by myself and Dr. Charles and this note is written on his behalf <Jes Toussaint - Last Filed: 03/04/18 08:52> - Plan Seen and examined with [employer], EGD today. CT abd/pelvis. Dr Colin will follow. Thank you The exam, history, and the medical decision-making described in the above note were completed with the assistance of the mid-level provider. I reviewed and agree with the findings presented. I attest that I had a [id number] encounter with the patient on the same day, and personally performed and documented my assessment and findings in the medical record. <Renuka Charles - Last Filed: 03/04/18 15:29>
--- NOTE | 2018-03-04 09:46 | ECG ---
Date Performed: 03/03/2018 Time Performed: 15:57:59 PTAGE: 23 years EKG: Sinus rhythm WITH SINUS ARRHYTHMIA NORMAL ECG \1 PREVIOUS TRACING : 07/15/2016 18.56 DOCTOR: Home [facility]ino Interpretating Date/Time 03/04/2018 09:44:35
[2018-03-04] MEDS ORDERED: Chlorhexidine Gluconate 2% 1 Pack (2 Cloths) TOPICAL SCH (11:27)
[2018-03-04] MEDS ORDERED: Metoprolol Tartrate 25 MG Tablet PO SCH (11:27)
[2018-03-04] MEDS ORDERED: Sodium Chlor 0.9% Inj 500 ML IV.SIG SCH (12:00)
--- NOTE | 2018-03-04 12:46 | GIPROC ---
[facility] [address] [facility]. [facility], [id number] EGD PROCEDURE REPORT EXAM DATE: 03/04/2018 PATIENT NAME: Karley Engel MR #: [id number] BIRTHDATE: 1995 ATTENDING: Renuka Charles MD ORDER #: [id number] SALES CORRESPONDENCE CLERK: Anjana Chavira and Anahi Gustafson STATUS: inpatient INDICATIONS: The patient is a 23 yr old female here for an EGD due to epigastric abdominal pain and dyspepsia PROCEDURE PERFORMED: EGD w/ biopsy MEDICATIONS: Per Anesthesia and None. TOPICAL ANESTHETIC: CONSENT: The patient understands the risks and benefits of the procedure and understands that these risks include, but are not limited to: sedation, allergic reaction, infection, perforation and/or bleeding. Alternative means of evaluation and treatment include, among others: physical exam, x-rays, and/or surgical intervention. The patient elects to proceed with this endoscopic procedure. medical equipment was checked for proper function. Hand hygiene and appropriate measures for infection prevention was taken. After the risks, benefits and alternatives of the procedure were thoroughly explained, Informed consent was verified, confirmed and timeout was successfully executed by the treatment team. The patient was anesthetized with topical anesthesia and the Pentax EG-[id number] endoscope was introduced through the mouth and advanced to the second portion of the duodenum. Retroflexed views revealed no abnormalities The gastroscope was then slowly withdrawn and removed. ESOPHAGUS: There was LA Class A esophagitis noted. STOMACH: There was erythematous moderate gastritis in the gastric body and gastric antrum. A biopsy was performed. DUODENUM: The duodenal mucosa appeared normal in the bulb and second portion of the duodenum. ADVERSE EVENTS: There were no complications. IMPRESSIONS: 1. There was LA Class A esophagitis noted 2. There was erythematous gastritis in the gastric body and gastric antrum; biopsy was performed 3. Normal duodenal mucosa in the bulb and second portion of the duodenum 4. Retroflexed views revealed no abnormalities RECOMMENDATIONS: 1. Await biopsy results. Biopsy results will not be ready for 7-10 days. If you don't hear from us in two weeks, call our office for biopsy results. 2. Continue PPI 3. Avoid NSAIDS PATIENT CONDITION: stable DISPOSITION: Inpatient REPEAT EXAM: Return 1 year EGD pending biopsy results Renuka Charles MD eSigned: Renuka Charles MD 03/04/2018 12:46 PM cc: PATIENT NAME: Reuben Engelaramis Rivera MR#: [id number]
--- NOTE | 2018-03-04 14:24 | CT ---
EXAM DATE: 03/04/2018 2:08 PM EDT AGE/SEX: 23 years / Female INDICATIONS: Nausea, Vomiting, Diarrhea 1 week CLINICAL DATA: This is the patient's initial encounter. Patient reports that signs and symptoms have been present for 1 week and indicates a pain score of 10/10. MEDICAL/SURGICAL HISTORY: None. Cholecystectomy. ORAL CONTRAST: No oral contrast ingested. RADIATION DOSE: 6.64 CTDI (mGy) COMPARISON: [facility] – [place], CT ABDOMEN & PELVIS W CONTRAST, 03/10/2016. . TECHNIQUE: Multiple contiguous axial images were obtained through the abdomen and pelvis following b olus infusion of 89ml ml Omnipaque 350 (iohexol) nonionic water-soluble contrast as a single exam d ose. No oral contrast ingested. Using automated exposure control and adjustment of the mA and/or kV according to patient size, radiation dose was kept as low as reasonably achievable to obtain optimal diagnostic quality images. DICOM format image data is available electronically for review and compar jay jay. FINDINGS: Lower Lungs: The visualized lower lungs are clear. Liver: The liver has a homogeneous density without space-occupying lesion. There is no dilation of th e biliary tree. Spleen: Homogeneous density without enlargement. Pancreas: Unremarkable without mass or calcification. Kidneys: Normal in size and shape. No evidence of mass or hydronephrosis. Adrenal Glands: Unremarkable. Aorta: The aorta and proximal iliac vessels are grossly unremarkable without aneurysmal dilation. Bowel/Mesentery: The bowel loops are grossly unremarkable. The cecum and sigmoid colon have a normal configuration. Abdominal Wall: Intact. Retroperitoneum: No evidence of adenopathy in the retrocrural, para-aortic, or deep pelvic regions. Bladder: Contours are smooth. Reproductive Organs: Bilateral adnexal cysts, including a 2 cm cyst on the right and 3.5 cm cyst on the left. Minimal physiologic free fluid. Inguinal: The inguinal region is unremarkable without evidence of adenopathy. Bony Structures: Unremarkable. CONCLUSION: Bilateral adnexal cysts and minimal free pelvic fluid. Electronically signed by: Rodrigo Carmona MD 03/04/2018 2:23 PM EDT
[2018-03-04] MEDS ORDERED: Phenol 1.4% 180 ML Spray Bottle OROPHARYNG PRN (16:30)
--- NOTE | 2018-03-04 16:41 | P.PNIM ---
Subjective Interval history: 23-year-old female history of cholecystectomy due to cholelithiasis and pericholecystic fluid in 2016 who presents with intermittent nonradiating, burning epigastric pain, nausea with nonbloody vomiting over the past week. She reports a 27 pound weight loss. Patient reports smoking marijuana, says she quit 2 days ago however. 03-04 HAD EGD WHICH SHOWED ESOPHAGITIS AND GASTRITIS CONTINUE ON PROTONIX BID NO NSAIDS ALBUMIN WAS NORMAL- DON'T SUSPECT TRUE 30# WEIGHT LOSS Physical Exam Vital signs: Vital Signs 03/03/18 18:22 03/03/18 21:22 03/03/18 23:47 Temperature 98.6 F 97.7 F Pulse Rate 84 67 67 Respiratory Rate 17 16 16 Blood Pressure 120/66 100/55 L 96/53 L Pulse Oximetry 99 97 100 03/04/18 00:26 03/04/18 03:12 03/04/18 08:00 Temperature 97.7 F 97.4 F L Pulse Rate 61 55 L Respiratory Rate 18 16 20 Blood Pressure 94/41 L 103/45 L Pulse Oximetry 99 99 03/04/18 12:55 03/04/18 14:59 Temperature 97.6 F Pulse Rate 92 H 56 L Respiratory Rate 16 20 Blood Pressure 115/59 L 109/67 Pulse Oximetry 100 100 Intake & Output 03/03/18 03/04/18 03/04/18 18:59 06:59 18:59 Intake Total 2099 Balance 2099 Weight 51.6 kg Intake: IV 2099 NS Inj 1,000 ML @ 100 mls/hr IV 900 / 900 .CONT .Q10H ASHER Rx#:[id number] KCl 20 mEq Premix Inj 20 meq In 200 / 200 100 ml @ 50 mls/hr IV.SIG Q2H ASHER Rx#:[id number] NS Inj 1,000 ML @ Wide Open IV. 1000 / 1000 SIG BOLUS ONE Rx#:[id number] Other: # Voids 4 Date of Last Bowel Movement 03/02/18 Narrative: GENERAL: Patient sitting up in bed. Appears comfortable. Alert and oriented 4. Patient examined with nurse present. SKIN: Warm and dry. HEAD: Atraumatic. Normocephalic. EYES: Pupils equal and round. No scleral icterus. No injection or drainage. ENT: No nasal bleeding or discharge. Mucous membranes pink and moist. NECK: Trachea midline. No JVD. CARDIOVASCULAR: Regular rate and rhythm. RESPIRATORY: No accessory muscle use. Clear to auscultation. Breath sounds equal bilaterally. GASTROINTESTINAL: Abdomen soft, non-tender, nondistended. Hepatic and splenic margins not palpable. Positive bowel sounds. MUSCULOSKELETAL: Extremities without clubbing, cyanosis, or edema. No obvious deformities. NEUROLOGICAL: Awake and alert. No obvious cranial nerve deficits. Motor grossly within normal limits. Five out of 5 muscle strength in the arms and legs. Normal speech. PSYCHIATRIC: Appropriate mood and affect; insight and judgment normal. Results - Labs CBC & Chem 7: 03/04/18 06:33 03/04/18 06:33 Laboratory Results - last 24 hr 03/03/18 03/03/18 03/03/18 16:35 16:35 16:35 WBC 12.5 H RBC 5.24 Hgb 15.7 H Hct 47.3 H MCV 90.4 MCH 30.1 MCHC 33.3 RDW 14.6 Plt Count 270 MPV 9.7 Neut % (Auto) 69.0 Lymph % (Auto) 22.6 [place] % (Auto) 6.3 Eos % (Auto) 1.4 Baso % (Auto) 0.7 Neut # (Auto) 8.6 H Lymph # (Auto) 2.8 [place] # (Auto) 0.8 Eos # (Auto) 0.2 Baso # (Auto) 0.1 WBC Differential . Differential Comment Auto diff final Sodium 137 Potassium 3.1 L Chloride 99 Carbon Dioxide 27.5 Anion Gap 11 BUN 8 Creatinine 0.64 Estimated GFR Greater than 89 Random Glucose 85 Lactic Acid 0.8 Calcium 8.6 Magnesium Total Bilirubin 0.8 AST 9 L ALT 20 Alkaline Phosphatase 82 Total Protein 7.3 Albumin 4.1 Lipase 143 Beta HCG, Qual Urine Color Urine Clarity Urine pH Ur Specific [place] Urine Protein Urine Glucose (UA) Urine Ketones Urine Occult Blood Urine Nitrate Urine Bilirubin Urine Urobilinogen Ur Leukocyte Esterase Urine RBC Urine WBC Ur Squamous Epith Cells Urine Bacteria Hyaline Casts Urine Mucus Micro UA Comment Ur Microscopic Review Urine Culture Comments Urine Opiates Screen Ur Barbiturates Screen Ur Amphetamines Screen U Benzodiazepines Scrn Urine Cocaine Screen U Cannabinoids Screen 03/03/18 03/03/18 03/04/18 18:21 22:00 06:33 WBC 9.4 RBC 4.28 Hgb 13.1 D Hct 39.2 MCV 91.5 MCH 30.6 MCHC 33.4 RDW 14.2 Plt Count 186 D MPV 9.1 Neut % (Auto) 52.5 Lymph % (Auto) 37.8 [place] % (Auto) 6.0 Eos % (Auto) 2.8 Baso % (Auto) 0.9 Neut # (Auto) 4.9 Lymph # (Auto) 3.5 [place] # (Auto) 0.6 Eos # (Auto) 0.3 Baso # (Auto) 0.1 WBC Differential . Differential Comment Auto diff final Sodium Potassium Chloride Carbon Dioxide Anion Gap BUN Creatinine Estimated GFR Random Glucose Lactic Acid Calcium Magnesium Total Bilirubin AST ALT Alkaline Phosphatase Total Protein Albumin Lipase Beta HCG, Qual Urine Color [place] Urine Clarity Hazy H Urine pH 6.0 Ur Specific [place] 1.019 Urine Protein 30 H Urine Glucose (UA) Negative Urine Ketones 20 Urine Occult Blood Moderate H Urine Nitrate Negative Urine Bilirubin Negative Urine Urobilinogen 2.0 H Ur Leukocyte Esterase Negative Urine RBC 11 H Urine WBC 5 Ur Squamous Epith Cells 29 Urine Bacteria Occasional H Hyaline Casts 4 Urine Mucus Many H Micro UA Comment Culture not ind Ur Microscopic Review Not Reportable Urine Culture Comments Culture not ind Urine Opiates Screen Pos H Ur Barbiturates Screen Neg Ur Amphetamines Screen Neg U Benzodiazepines Scrn Neg Urine Cocaine Screen Neg U Cannabinoids Screen Pos H 03/04/18 03/04/18 03/04/18 06:33 06:33 06:33 WBC RBC Hgb Hct MCV MCH MCHC RDW Plt Count MPV Neut % (Auto) Lymph % (Auto) [place] % (Auto) Eos % (Auto) Baso % (Auto) Neut # (Auto) Lymph # (Auto) [place] # (Auto) Eos # (Auto) Baso # (Auto) WBC Differential Differential Comment Sodium 143 Potassium 3.2 L Chloride 107 D Carbon Dioxide 27.5 Anion Gap 9 BUN 8 Creatinine 0.52 Estimated GFR Greater than 89 Random Glucose 68 L Lactic Acid Calcium 7.9 L Magnesium 2.1 Total Bilirubin 0.7 AST 7 L ALT 16 Alkaline Phosphatase 61 Total Protein 5.6 L D Albumin 3.2 L D Lipase Beta HCG, Qual Less than 1.0 Urine Color Urine Clarity Urine pH Ur Specific [place] Urine Protein Urine Glucose (UA) Urine Ketones Urine Occult Blood Urine Nitrate Urine Bilirubin Urine Urobilinogen Ur Leukocyte Esterase Urine RBC Urine WBC Ur Squamous Epith Cells Urine Bacteria Hyaline Casts Urine Mucus Micro UA Comment Ur Microscopic Review Urine Culture Comments Urine Opiates Screen Ur Barbiturates Screen Ur Amphetamines Screen U Benzodiazepines Scrn Urine Cocaine Screen U Cannabinoids Screen - Imaging Impressions Chest X-Ray 03/03/18 16:24 CONCLUSION: No acute intrathoracic disease. Abdomen/Pelvis CT 03/04/18 00:00 CONCLUSION: Bilateral adnexal cysts and minimal free pelvic fluid. - Procedures EGD PROCEDURE REPORT EXAM DATE: 03/04/2018 PATIENT NAME: Karley Engel MR #: [id number] BIRTHDATE: 1995 ATTENDING: Renuka Charles MD ORDER #: [id number] MACHINE OPERATOR HOP WORKER: Philomena Chavira Bianca STATUS: inpatient INDICATIONS: The patient is a 23 yr old female here for an EGD due to epigastric abdominal pain and dyspepsia PROCEDURE PERFORMED: EGD w/ biopsy MEDICATIONS: Per Anesthesia and None. TOPICAL ANESTHETIC: CONSENT: The patient understands the risks and benefits of the procedure and understands that these risks include, but are not limited to: sedation, allergic reaction, infection, perforation and/or bleeding. Alternative means of evaluation and treatment include, among others: physical exam, x-rays, and/or surgical intervention. The patient elects to proceed with this endoscopic procedure. medical equipment was checked for proper function. Hand hygiene and appropriate measures for infection prevention was taken. After the risks, benefits and alternatives of the procedure were thoroughly explained, Informed consent was verified, confirmed and timeout was successfully executed by the treatment team. The patient was anesthetized with topical anesthesia and the Pentax EG-[id number] endoscope was introduced through the mouth and advanced to the second portion of the duodenum. Retroflexed views revealed no abnormalities The gastroscope was then slowly withdrawn and removed. ESOPHAGUS: There was LA Class A esophagitis noted. STOMACH: There was erythematous moderate gastritis in the gastric body and gastric antrum. A biopsy was performed. DUODENUM: The duodenal mucosa appeared normal in the bulb and second portion of the duodenum. ADVERSE EVENTS: There were no complications. IMPRESSIONS: 1. There was LA Class A esophagitis noted 2. There was erythematous gastritis in the gastric body and gastric antrum; biopsy was performed 3. Normal duodenal mucosa in the bulb and second portion of the duodenum 4. Retroflexed views revealed no abnormalities RECOMMENDATIONS: 1. Await biopsy results. Biopsy results will not be ready for 7-10 days. If you don't hear from us in two weeks, call our office for biopsy results. 2. Continue PPI 3. Avoid NSAIDS PATIENT CONDITION: stable DISPOSITION: Inpatient REPEAT EXAM: Return 1 year EGD pending biopsy results Assessment and Plan - Plan Epigastric pain Nausea and vomiting -Chest x-ray unremarkable. -LFTs unremarkable. Improved nausea with antiemetics Continue antiemetics. -Possibility of marijuana hyperemesis syndrome, however patient does not believe this is a case. N.p.o. Consult gastroenterology. ADVANCE DIET SP EGD SHOWED GASTRITIS AND ESOPHAGITIS Mild leukocytosis. Leukocytes 12.6 likely secondary to nausea vomiting. No signs of infection. Continue to monitor Hypokalemia. Likely secondary nausea vomiting. Replace and monitor. INITIAL ALBUMIN IS NORMAL DO NOT BELIEVE A 30+ POUND WEIGHT LOSS IF THIS WAS NORMAL AT PRESENTATION HAS BEEN STARTED ON FULL REGULAR DIET BY GI WAS POSITIVE FOR OPIOIDS ON TOX BUT WE GAVE HER MORPHINE BEFORE SCREEN WAS DONE HYPOKALEMIA WILL REPLACE AM LAB DC TO HOME TOMORROW Code Status: FULL CODE Discussed Condition With: RN AND PT AND CM Discharge Planning: DC TO HOME TOMORROW
[2018-03-04] MEDS ORDERED: Potassium Bicarbonate 25 MEQ Effervescent Tablet PO ONE (17:00)
[2018-03-04] MEDS ORDERED: Sucralfate Liq 1 GM/10 ML UDC PO ONE (19:59)
[2018-03-04] MEDS ORDERED: Potassium Chlor 20 mEq Premix 20 MEQ/100 ML PIGGYBACK IV.SIG ONE (20:00)
[2018-03-04] MEDS: Potassium Chlor 10 mEq Premix 10 MEQ/100 ML PIGGYBACK IV.SIG SCH ×2 (20:47→22:18)
[2018-03-05 04:04] VITALS: BP 166/96; PULSE 69; RESP 18; TEMP 98.3; O2SAT 100
[2018-03-05] MEDS: Sod Chloride 0.9% Inj 1,000 ML IV.CONT SCH (05:58)
[2018-03-05 08:37] LABS: Baso # (Auto) 0.1 th/mm3 (0.0-0.2); Baso % (Auto) 0.6 % (0.0-2.0); Eos # (Auto) 0.1 th/mm3 (0.0-0.4); Eos % (Auto) 1.3 % (0.0-4.0); Hemoglobin 14.8 gm/dL (11.6-15.3); Lymph # (Auto) 1.6 th/mm3 (1.0-4.8); Lymph % (Auto) 15.8 % (9.0-44.0); Mean Corpuscular HGB Conc 33.7 % (32.0-36.0); Mean Corpuscular Hemoglobin 30.8 pg (27.0-34.0); Mean Corpuscular Volume 91.4 fL (80.0-100.0); Mean Platelet Volume 9.3 fL (7.0-11.0); Mono # (Auto) 0.6 th/mm3 (0.0-0.9); Mono % (Auto) 5.7 % (0.0-8.0); Neut % (Auto) 76.6 % (16.0-70.0); Platelet Count 227 th/mm3 (150-450); Red Blood Count 4.81 mil/mm3 (4.00-5.30); Red Cell Distribution Width 14.3 % (11.6-17.2); White Blood Count 10.4 th/mm3 (4.0-11.0)
[2018-03-05 08:40] LABS: INR 1.1 Ratio; Prothrombin Time 10.9 sec (9.8-11.6)
[2018-03-05] MEDS: Pantoprazole Inj 40 MG Vial IV.PUSH SCH (08:52)
[2018-03-05 08:58] LABS: Alanine Aminotransferase 17 U/L (10-53); Albumin 3.6 g/dL (3.4-5.0); Amylase 78 U/L (25-115); Anion Gap 11 meq/L (5-15); Aspartate Aminotransferase 11 U/L (15-37); Blood Urea Nitrogen 2 mg/dL (7-18); Calcium 8.3 mg/dL (8.5-10.1); Carbon Dioxide 25.8 meq/L (21.0-32.0); Chloride 103 meq/L (98-107); Glomerular Filtration Rate Greater Than 89 mL/min (>89); Glucose,Random 82 mg/dL (74-106); Lipase 51 U/L (73-393); Magnesium 1.8 mg/dL (1.5-2.5); Phosphorus 2.6 mg/dL (2.5-4.9); Potassium 3.5 meq/L (3.5-5.1); Sodium 140 meq/L (136-145)
[2018-03-05 09:06] LABS: Alkaline Phosphatase 77 U/L (45-117); Thyroid Stimulating Hormone 0.807 uIU/mL (0.358-3.740); Total Protein 6.7 g/dL (6.4-8.2)
--- NOTE | 2018-03-05 09:43 | P.PNIM ---
Subjective Interval history: 23-year-old female history of cholecystectomy due to cholelithiasis and pericholecystic fluid in 2016 who presents with intermittent nonradiating, burning epigastric pain, nausea with nonbloody vomiting over the past week. She reports a 27 pound weight loss. Patient reports smoking marijuana, says she quit 2 days ago however. 03-04 HAD EGD WHICH SHOWED ESOPHAGITIS AND GASTRITIS CONTINUE ON PROTONIX BID NO NSAIDS ALBUMIN WAS NORMAL- DON'T SUSPECT TRUE 30# WEIGHT LOSS 9-1 STATES WAS VOMITING ALL NIGHT BUT HER LABS ACTUALLY LOOK BETTER THAN YESTERDAY THINK SHE IS SEEKING SOME SECONDARY GAIN HERE IN THE HOSPITAL CAN BE DISCHARGED TO HOME POSSIBLE DRUG SEEKING BEHAVIOR Physical Exam Vital signs: Vital Signs 03/04/18 12:55 03/04/18 14:59 03/04/18 16:38 Temperature 97.6 F 97.8 F Pulse Rate 92 H 56 L 61 Respiratory Rate 16 20 18 Blood Pressure 115/59 L 109/67 109/53 L Pulse Oximetry 100 100 100 03/04/18 20:00 03/05/18 00:06 03/05/18 04:00 Temperature 98.2 F 97.6 F 98.3 F Pulse Rate 62 67 69 Respiratory Rate 18 17 18 Blood Pressure 141/88 H 137/84 166/96 H Pulse Oximetry 98 98 100 Intake & Output 03/04/18 03/05/18 03/05/18 18:59 06:59 18:59 Intake Total 350 / 350 3000 / 3000 Balance 350 / 350 3000 / 3000 Intake: IV 3000 / 3000 NS Inj 1,000 ML @ 100 mls/hr IV 2800 / 2800 .CONT .Q10H ASHER Rx#:[id number] KCl 10 mEq Premix Inj 10 meq In 200 / 200 100 ml @ 100 mls/hr IV.SIG Q1H ASHER Rx#:[id number] Oral 350 / 350 Other: # Voids 4 3 Date of Last Bowel Movement 03/04/18 03/04/18 # Bowel Movements 1 # Emeses 5 Narrative: GENERAL: Patient sitting up in bed. Appears comfortable. Alert and oriented 4. Patient examined with nurse present. SKIN: Warm and dry. HEAD: Atraumatic. Normocephalic. EYES: Pupils equal and round. No scleral icterus. No injection or drainage. ENT: No nasal bleeding or discharge. Mucous membranes pink and moist. NECK: Trachea midline. No JVD. CARDIOVASCULAR: Regular rate and rhythm. RESPIRATORY: No accessory muscle use. Clear to auscultation. Breath sounds equal bilaterally. GASTROINTESTINAL: Abdomen soft, non-tender, nondistended. Hepatic and splenic margins not palpable. Positive bowel sounds. MUSCULOSKELETAL: Extremities without clubbing, cyanosis, or edema. No obvious deformities. NEUROLOGICAL: Awake and alert. No obvious cranial nerve deficits. Motor grossly within normal limits. Five out of 5 muscle strength in the arms and legs. Normal speech. PSYCHIATRIC: Appropriate mood and affect; insight and judgment normal. Results - Labs CBC & Chem 7: 03/05/18 08:00 03/05/18 08:00 Laboratory Results - last 24 hr 03/04/18 03/05/18 03/05/18 06:33 08:00 08:00 WBC 10.4 RBC 4.81 Hgb 14.8 Hct 44.0 MCV 91.4 MCH 30.8 MCHC 33.7 RDW 14.3 Plt Count 227 MPV 9.3 Neut % (Auto) 76.6 H Lymph % (Auto) 15.8 [place] % (Auto) 5.7 Eos % (Auto) 1.3 Baso % (Auto) 0.6 Neut # (Auto) 8.0 H Lymph # (Auto) 1.6 [place] # (Auto) 0.6 Eos # (Auto) 0.1 Baso # (Auto) 0.1 WBC Differential . Differential Comment Auto diff final PT 10.9 INR 1.1 Sodium Potassium Chloride Carbon Dioxide Anion Gap BUN Creatinine Estimated GFR Random Glucose Calcium Phosphorus Magnesium Total Bilirubin AST ALT Alkaline Phosphatase Ammonia Total Protein Albumin Amylase Lipase TSH Beta HCG, Qual Less than 1.0 03/05/18 03/05/18 08:00 08:00 WBC RBC Hgb Hct MCV MCH MCHC RDW Plt Count MPV Neut % (Auto) Lymph % (Auto) [place] % (Auto) Eos % (Auto) Baso % (Auto) Neut # (Auto) Lymph # (Auto) [place] # (Auto) Eos # (Auto) Baso # (Auto) WBC Differential Differential Comment PT INR Sodium 140 Potassium 3.5 Chloride 103 Carbon Dioxide 25.8 Anion Gap 11 BUN 2 L Creatinine 0.47 L Estimated GFR Greater than 89 Random Glucose 82 Calcium 8.3 L Phosphorus 2.6 Magnesium 1.8 Total Bilirubin 0.7 AST 11 L ALT 17 Alkaline Phosphatase 77 Ammonia 29 Total Protein 6.7 D Albumin 3.6 Amylase 78 Lipase 51 L TSH 0.807 Beta HCG, Qual - Imaging Impressions Abdomen/Pelvis CT 03/04/18 00:00 CONCLUSION: Bilateral adnexal cysts and minimal free pelvic fluid. - Procedures EGD PROCEDURE REPORT EXAM DATE: 03/04/2018 PATIENT NAME: Karley Engel MR #: [id number] BIRTHDATE: 1995 ATTENDING: Renuka Charles MD ORDER #: [id number] ACCOUNTANCY PROFESSOR: Anjana Chavira and Anahi Gustafson STATUS: inpatient INDICATIONS: The patient is a 23 yr old female here for an EGD due to epigastric abdominal pain and dyspepsia PROCEDURE PERFORMED: EGD w/ biopsy MEDICATIONS: Per Anesthesia and None. TOPICAL ANESTHETIC: CONSENT: The patient understands the risks and benefits of the procedure and understands that these risks include, but are not limited to: sedation, allergic reaction, infection, perforation and/or bleeding. Alternative means of evaluation and treatment include, among others: physical exam, x-rays, and/or surgical intervention. The patient elects to proceed with this endoscopic procedure. medical equipment was checked for proper function. Hand hygiene and appropriate measures for infection prevention was taken. After the risks, benefits and alternatives of the procedure were thoroughly explained, Informed consent was verified, confirmed and timeout was successfully executed by the treatment team. The patient was anesthetized with topical anesthesia and the Pentax EG-[id number] endoscope was introduced through the mouth and advanced to the second portion of the duodenum. Retroflexed views revealed no abnormalities The gastroscope was then slowly withdrawn and removed. ESOPHAGUS: There was LA Class A esophagitis noted. STOMACH: There was erythematous moderate gastritis in the gastric body and gastric antrum. A biopsy was performed. DUODENUM: The duodenal mucosa appeared normal in the bulb and second portion of the duodenum. ADVERSE EVENTS: There were no complications. IMPRESSIONS: 1. There was LA Class A esophagitis noted 2. There was erythematous gastritis in the gastric body and gastric antrum; biopsy was performed 3. Normal duodenal mucosa in the bulb and second portion of the duodenum 4. Retroflexed views revealed no abnormalities RECOMMENDATIONS: 1. Await biopsy results. Biopsy results will not be ready for 7-10 days. If you don't hear from us in two weeks, call our office for biopsy results. 2. Continue PPI 3. Avoid NSAIDS PATIENT CONDITION: stable DISPOSITION: Inpatient REPEAT EXAM: Return 1 year EGD pending biopsy results Assessment and Plan - Plan Epigastric pain Nausea and vomiting -Chest x-ray unremarkable. -LFTs unremarkable. Improved nausea with antiemetics Continue antiemetics. -Possibility of marijuana hyperemesis syndrome, however patient does not believe this is a case. N.p.o. Consult gastroenterology. ADVANCE DIET SP EGD SHOWED GASTRITIS AND ESOPHAGITIS Mild leukocytosis. Leukocytes 12.6 likely secondary to nausea vomiting. No signs of infection. Continue to monitor Hypokalemia. Likely secondary nausea vomiting. Replace and monitor. INITIAL ALBUMIN IS NORMAL DO NOT BELIEVE A 30+ POUND WEIGHT LOSS IF THIS WAS NORMAL AT PRESENTATION HAS BEEN STARTED ON FULL REGULAR DIET BY GI WAS POSITIVE FOR OPIOIDS ON TOX BUT WE GAVE HER MORPHINE BEFORE SCREEN WAS DONE HYPOKALEMIA WILL REPLACE LABS LOOK BETTER THAN YESTERDAY DC TO HOME TODAY DC TO HOME TODAY Code Status: FULL CODE Discussed Condition With: RN AND PT AND CM Discharge Planning: DC TO HOME TODAY
--- NOTE | 2018-03-05 09:52 | P.DS ---
Date of admission: 03/03/18 18:25 Primary care physician: No Primary Care Physician Attending physician on discharge: Jayden Kim Anticipated date of discharge: 03/05/18 Brief History from admission: 23-year-old female history of cholecystectomy due to cholelithiasis and pericholecystic fluid in 2016 who presents with intermittent nonradiating, burning epigastric pain, nausea with nonbloody vomiting over the past week. She reports a 27 pound weight loss. Patient reports smoking marijuana, says she quit 2 days ago however. Patient update on day of discharge: HAD EGD CAN DISCHARGE TO HOME TODAY DS: Diagnosis - Discharge Diagnosis (1) Esophagitis Status: Acute (2) Gastritis Status: Acute (3) Drug-seeking behavior Status: Acute (4) Odynophagia Status: Acute (5) Unintended weight loss Status: Acute DS: Medications - Discharge Medications Prescriptions: pantoprazole [Protonix] 40 mg PO BID #60 tab tramadol [Ultram] 100 mg PO Q4H PRN #18 tab PRN Reason: Pain DS: Summary Hospital Course: 23-year-old female history of cholecystectomy due to cholelithiasis and pericholecystic fluid in 2015 who presents with intermittent nonradiating, burning epigastric pain, nausea with nonbloody vomiting over the past week. She reports a 27 pound weight loss. Patient reports smoking marijuana, says she quit 2 days ago however. 03-04 HAD EGD WHICH SHOWED ESOPHAGITIS AND GASTRITIS CONTINUE ON PROTONIX BID NO NSAIDS ALBUMIN WAS NORMAL- DON'T SUSPECT TRUE 30# WEIGHT LOSS 9-1 STATES WAS VOMITING ALL NIGHT BUT HER LABS ACTUALLY LOOK BETTER THAN YESTERDAY THINK SHE IS SEEKING SOME SECONDARY GAIN HERE IN THE HOSPITAL CAN BE DISCHARGED TO HOME POSSIBLE DRUG SEEKING BEHAVIOR E-FORCSE has been checked NO RX ON HER PROFILE WILL GIVE ULTRAM 100MG PO Q4HR PRN PAIN #18 ONLY FOR ACUTE PAIN PROTONIX 40MG PO BID - Time Spent with Patient Total time spent providing and/or coordinating discharge services: Less than 30 minutes - Quality: VTE Deep Vein Thrombosis/Pulmonary Embolism Present on Admission: No Exam Vital signs: Vital Signs 03/04/18 12:55 03/04/18 14:59 03/04/18 16:38 Temperature 97.6 F 97.8 F Pulse Rate 92 H 56 L 61 Respiratory Rate 16 20 18 Blood Pressure 115/59 L 109/67 109/53 L Pulse Oximetry 100 100 100 03/04/18 20:00 03/05/18 00:06 03/05/18 04:00 Temperature 98.2 F 97.6 F 98.3 F Pulse Rate 62 67 69 Respiratory Rate 18 17 18 Blood Pressure 141/88 H 137/84 166/96 H Pulse Oximetry 98 98 100 Intake & Output 03/04/18 03/05/18 03/05/18 18:59 06:59 18:59 Intake Total 350 / 350 3000 / 3000 Balance 350 / 350 3000 / 3000 Intake: IV 3000 / 3000 NS Inj 1,000 ML @ 100 mls/hr IV 2800 / 2800 .CONT .Q10H [facility] Rx#:[id number] KCl 10 mEq Premix Inj 10 meq In 200 / 200 100 ml @ 100 mls/hr IV.SIG Q1H [facility] Rx#:[id number] Oral 350 / 350 Other: # Voids 4 3 Date of Last Bowel Movement 03/04/18 03/04/18 # Bowel Movements 1 # Emeses 5 Narrative: GENERAL: Patient sitting up in bed. Appears comfortable. Alert and oriented 4. Patient examined with nurse present. SKIN: Warm and dry. HEAD: Atraumatic. Normocephalic. EYES: Pupils equal and round. No scleral icterus. No injection or drainage. ENT: No nasal bleeding or discharge. Mucous membranes pink and moist. NECK: Trachea midline. No JVD. CARDIOVASCULAR: Regular rate and rhythm. RESPIRATORY: No accessory muscle use. Clear to auscultation. Breath sounds equal bilaterally. GASTROINTESTINAL: Abdomen soft, non-tender, nondistended. Hepatic and splenic margins not palpable. Positive bowel sounds. MUSCULOSKELETAL: Extremities without clubbing, cyanosis, or edema. No obvious deformities. NEUROLOGICAL: Awake and alert. No obvious cranial nerve deficits. Motor grossly within normal limits. Five out of 5 muscle strength in the arms and legs. Normal speech. PSYCHIATRIC: Appropriate mood and affect; insight and judgment normal. Results Procedures completed during hospitalization: EGD PROCEDURE REPORT EXAM DATE: 03/04/2018 PATIENT NAME: Karley Engel MR #: [id number] BIRTHDATE: 1995 ATTENDING: Renuka Charles MD ORDER #: [id number] RADAR TECHNICIAN: Clark-Jabari, Anahi Quach STATUS: inpatient INDICATIONS: The patient is a 23 yr old female here for an EGD due to epigastric abdominal pain and dyspepsia PROCEDURE PERFORMED: EGD w/ biopsy MEDICATIONS: Per Anesthesia and None. TOPICAL ANESTHETIC: CONSENT: The patient understands the risks and benefits of the procedure and understands that these risks include, but are not limited to: sedation, allergic reaction, infection, perforation and/or bleeding. Alternative means of evaluation and treatment include, among others: physical exam, x-rays, and/or surgical intervention. The patient elects to proceed with this endoscopic procedure. medical equipment was checked for proper function. Hand hygiene and appropriate measures for infection prevention was taken. After the risks, benefits and alternatives of the procedure were thoroughly explained, Informed consent was verified, confirmed and timeout was successfully executed by the treatment team. The patient was anesthetized with topical anesthesia and the Pentax EG-[id number] endoscope was introduced through the mouth and advanced to the second portion of the duodenum. Retroflexed views revealed no abnormalities The gastroscope was then slowly withdrawn and removed. ESOPHAGUS: There was [place] Class A esophagitis noted. STOMACH: There was erythematous moderate gastritis in the gastric body and gastric antrum. A biopsy was performed. DUODENUM: The duodenal mucosa appeared normal in the bulb and second portion of the duodenum. ADVERSE EVENTS: There were no complications. IMPRESSIONS: 1. There was LA Class A esophagitis noted 2. There was erythematous gastritis in the gastric body and gastric antrum; biopsy was performed 3. Normal duodenal mucosa in the bulb and second portion of the duodenum 4. Retroflexed views revealed no abnormalities RECOMMENDATIONS: 1. Await biopsy results. Biopsy results will not be ready for 7-10 days. If you don't hear from us in two weeks, call our office for biopsy results. 2. Continue PPI 3. Avoid NSAIDS PATIENT CONDITION: stable DISPOSITION: Inpatient REPEAT EXAM: Return 1 year EGD pending biopsy results Completed studies during hospitalization: Most recent lab results Calcium 8.3 mg/dL (8.5-10.1) L 03/05/18 08:00 Phosphorus 2.6 mg/dL (2.5-4.9) 03/05/18 08:00 Magnesium 1.8 mg/dL (1.5-2.5) 03/05/18 08:00 Laboratory Results WBC 10.4 th/mm3 (4.0-11.0) 03/05/18 08:00 RBC 4.81 mil/mm3 (4.00-5.30) 03/05/18 08:00 Hgb 14.8 gm/dL (11.6-15.3) 03/05/18 08:00 Hct 44.0 % (35.0-46.0) 03/05/18 08:00 MCV 91.4 fL (80.0-100.0) 03/05/18 08:00 MCH 30.8 pg (27.0-34.0) 03/05/18 08:00 MCHC 33.7 % (32.0-36.0) 03/05/18 08:00 RDW 14.3 % (11.6-17.2) 03/05/18 08:00 Plt Count 227 th/mm3 (150-450) 03/05/18 08:00 MPV 9.3 fL (7.0-11.0) 03/05/18 08:00 Neut % (Auto) 76.6 % (16.0-70.0) H 03/05/18 08:00 Lymph % (Auto) 15.8 % (9.0-44.0) 03/05/18 08:00 [place] % (Auto) 5.7 % (0.0-8.0) 03/05/18 08:00 Eos % (Auto) 1.3 % (0.0-4.0) 03/05/18 08:00 Baso % (Auto) 0.6 % (0.0-2.0) 03/05/18 08:00 Neut # (Auto) 8.0 th/mm3 (1.8-7.7) H 03/05/18 08:00 Lymph # (Auto) 1.6 th/mm3 (1.0-4.8) 03/05/18 08:00 [place] # (Auto) 0.6 th/mm3 (0.0-0.9) 03/05/18 08:00 Eos # (Auto) 0.1 th/mm3 (0.0-0.4) 03/05/18 08:00 Baso # (Auto) 0.1 th/mm3 (0.0-0.2) 03/05/18 08:00 WBC Differential . 03/05/18 08:00 Differential Comment Auto diff final 03/05/18 08:00 PT 10.9 sec (9.8-11.6) 03/05/18 08:00 INR 1.1 Ratio 03/05/18 08:00 Sodium 140 meq/L (136-145) 03/05/18 08:00 Potassium 3.5 meq/L (3.5-5.1) 03/05/18 08:00 Chloride 103 meq/L (98-107) 03/05/18 08:00 Carbon Dioxide 25.8 meq/L (21.0-32.0) 03/05/18 08:00 Anion Gap 11 meq/L (5-15) 03/05/18 08:00 BUN 2 mg/dL (7-18) L 03/05/18 08:00 Creatinine 0.47 mg/dL (0.50-1.00) L 03/05/18 08:00 Estimated GFR Greater than 89 mL/min (>89) 03/05/18 08:00 Random Glucose 82 mg/dL (74-106) 03/05/18 08:00 Lactic Acid 0.8 mmol/L (0.4-2.0) 03/03/18 16:35 Calcium 8.3 mg/dL (8.5-10.1) L 03/05/18 08:00 Phosphorus 2.6 mg/dL (2.5-4.9) 03/05/18 08:00 Magnesium 1.8 mg/dL (1.5-2.5) 03/05/18 08:00 Total Bilirubin 0.7 mg/dL (0.2-1.0) 03/05/18 08:00 AST 11 U/L (15-37) L 03/05/18 08:00 ALT 17 U/L (10-53) 03/05/18 08:00 Alkaline Phosphatase 77 U/L (45-117) 03/05/18 08:00 Ammonia 29 mcmol/L (11-32) 03/05/18 08:00 Total Protein 6.7 g/dL (6.4-8.2) D 03/05/18 08:00 Albumin 3.6 g/dL (3.4-5.0) 03/05/18 08:00 Amylase 78 U/L (25-115) 03/05/18 08:00 Lipase 51 U/L (73-393) L 03/05/18 08:00 TSH 0.807 uIU/mL (0.358-3.740) 03/05/18 08:00 Beta HCG, Qual Less than 1.0 mIU/mL (0-5) 03/04/18 06:33 Urine Color Ren[place] (Yellw/Straw) 03/03/18 18:21 Urine Clarity Hazy (Clear) H 03/03/18 18:21 Urine pH 6.0 (5.0-8.5) 03/03/18 18:21 Ur Specific [place] 1.019 (1.002-1.035) 03/03/18 18:21 Urine Protein 30 mg/dL (Neg-Trace) H 03/03/18 18:21 Urine Glucose (UA) Negative mg/dL (Negative) 03/03/18 18:21 Urine Ketones 20 mg/dL (Negative) 03/03/18 18:21 Urine Occult Blood Moderate (Negative) H 03/03/18 18:21 Urine Nitrate Negative (Negative) 03/03/18 18:21 Urine Bilirubin Negative (Negative) 03/03/18 18:21 Urine Urobilinogen 2.0 mg/dL (Less than 2) H 03/03/18 18:21 Ur Leukocyte Esterase Negative (Negative) 03/03/18 18:21 Urine RBC 11 /hpf (0-3) H 03/03/18 18:21 Urine WBC 5 /hpf (0-5) 03/03/18 18:21 Ur Squamous Epith Cells 29 /hpf (0-5) 03/03/18 18:21 Urine Bacteria Occasional /hpf (None) H 03/03/18 18:21 Hyaline Casts 4 /lpf (0-3) 03/03/18 18:21 Urine Mucus Many /lpf (Occasional) H 03/03/18 18:21 Micro UA Comment Culture not ind 03/03/18 18:21 Ur Microscopic Review Not Reportable 03/03/18 18:21 Urine Culture Comments Culture not ind 03/03/18 18:21 Urine Opiates Screen Pos (Neg) H 03/03/18 22:00 Ur Barbiturates Screen Neg (Neg) 03/03/18 22:00 Ur Amphetamines Screen Neg (Neg) 03/03/18 22:00 U Benzodiazepines Scrn Neg (Neg) 03/03/18 22:00 Urine Cocaine Screen Neg (Neg) 03/03/18 22:00 U Cannabinoids Screen Pos (Neg) H 03/03/18 22:00 Impressions Chest X-Ray 03/03/18 16:24 CONCLUSION: No acute intrathoracic disease. Abdomen/Pelvis CT 03/04/18 00:00 CONCLUSION: Bilateral adnexal cysts and minimal free pelvic fluid. Pending studies at discharge: Pending at discharge 03/04/18 Surgical [PTH] Routine Labs on day of discharge: Labs from last 24 hours 03/05/18 03/05/18 03/05/18 08:00 08:00 08:00 WBC RBC Hgb Hct MCV MCH MCHC RDW Plt Count MPV Neut % (Auto) Lymph % (Auto) [place] % (Auto) Eos % (Auto) Baso % (Auto) Neut # (Auto) Lymph # (Auto) [place] # (Auto) Eos # (Auto) Baso # (Auto) WBC Differential Differential Comment PT INR Sodium 140 Potassium 3.5 Chloride 103 Carbon Dioxide 25.8 Anion Gap 11 BUN 2 L Creatinine 0.47 L Estimated GFR Greater than 89 Random Glucose 82 Hemoglobin A1c Pending Calcium 8.3 L Phosphorus 2.6 Magnesium 1.8 Total Bilirubin 0.7 AST 11 L ALT 17 Alkaline Phosphatase 77 Ammonia 29 Total Protein 6.7 D Albumin 3.6 Amylase 78 Lipase 51 L TSH 0.807 Beta HCG, Qual 03/05/18 03/05/18 03/04/18 08:00 08:00 06:33 WBC 10.4 RBC 4.81 Hgb 14.8 Hct 44.0 MCV 91.4 MCH 30.8 MCHC 33.7 RDW 14.3 Plt Count 227 MPV 9.3 Neut % (Auto) 76.6 H Lymph % (Auto) 15.8 [place] % (Auto) 5.7 Eos % (Auto) 1.3 Baso % (Auto) 0.6 Neut # (Auto) 8.0 H Lymph # (Auto) 1.6 [place] # (Auto) 0.6 Eos # (Auto) 0.1 Baso # (Auto) 0.1 WBC Differential . Differential Comment Auto diff final PT 10.9 INR 1.1 Sodium Potassium Chloride Carbon Dioxide Anion Gap BUN Creatinine Estimated GFR Random Glucose Hemoglobin A1c Calcium Phosphorus Magnesium Total Bilirubin AST ALT Alkaline Phosphatase Ammonia Total Protein Albumin Amylase Lipase TSH Beta HCG, Qual Less than 1.0 - Impressions ITS Impressions Chest X-Ray 03/03/18 16:24 CONCLUSION: No acute intrathoracic disease. Abdomen/Pelvis CT 03/04/18 00:00 CONCLUSION: Bilateral adnexal cysts and minimal free pelvic fluid. Discharge Plan - Discharge Disposition Patient Disposition: 01 Discharge Home - Discharge Condition Condition: Stable - Discharge Order Discharge Orders: Discharge Order (Routine); Ordered 03/05/18 Ordered By: Jayden Kim - Discharge Details Anticipated Discharge Date: 03/05/18 Discharge Comment: DC TO HOME - Physicians Team Primary Care Provider: Primary Care Physici,No Attending Provider: Jayden Kim Other Providers: Renuka Charles MD
[2018-03-05 10:44] LABS: Hemoglobin A1c 5.2 % (4.3-6.0)
== END 2018-03-05 10:54 | disposition home or self-care (01) ==
LOC: NEPE 15:33 → NEDA 15:33 → NEPGCP 21:00
PROVIDERS: ADMIT Hospitalist; ATTEND Hospitalist